=== PATIENT | male | born 1960 | race American Indian/Alaskan Native ===

== ENCOUNTER 2018-03-25 23:47 | Inpatient (IN) | payer MEDICARE ==
[2018-03-25 23:56] VITALS: BMI 24.6
[2018-03-26] MEDS ORDERED: Glucagon Recombinant 1 mg Inj IM PRN (00:54)
[2018-03-26] MEDS ORDERED: Dextrose 50% SYRINGE Inj (50 ml) IV PRN (00:54)
--- NOTE | 2018-03-26 01:09 | CP.PCM.HP ---
History of Present Illness - History of Present Illness History of Present Illness: CC: admitted for IV diuresis and for urinary retention History obtained from chart as patient is deaf and mute. HPI: This is a 57 y/o male with MHx significant for HTN, CKD, DM2, systolic CHF with EF of 12% w/pacemaker/AICD, cardiac arrhythmia, papillary bladder cancer, and BPH who is transferred to the TCU from [facility], it appears for further diuresis and for management of urinary retention (now with new Brizuela). It appears he was initially admitted to [facility], [place] with volume overload, worsening ascites, obstructive uropathy and ?UTI. He appears to have undergone IV diuresis at [facility], [place], as well as 2 paracenteses; he also completed a course of Cipro for possible UTI. Currently he has no concerns/complaints. PMD: Dr. Marshall, cardio: Dr. Felipe ROOT: Patient cannot participate because he is deaf and mute. PMHx: HTN, CKD, DM2, systolic CHF with EF of 12% w/pacemaker/AICD, cardiac arrhythmia, BPH, previous stroke in 2000 and 2016, deaf and mute PSHx: Pacemaker and defibrillator 2000, paracentesis 12/2017 Allergies: NKDA Family Hx: Unknown Social Hx: Lives alone, former heavy drinker 18 years ago, last drink was 2016, Hx of one withdrawal seizure in 2001, no tobacco and illicit drugs, Proxy: Micheal, son: [phone], Ana Laura, daughter: [phone] Present on Admission - Present on Admission Any Indicators Present on Admission: No Past Patient History - Infectious Disease Hx of Infectious Diseases: None - Past Medical History & Family History Past Medical History?: Yes - Past Social History Smoking Status: Never Smoked Chewing Tobacco Use: No - CARDIAC Hx Congestive Heart Failure: Yes Hx Hypercholesterolemia: Yes Hx Hypertension: Yes - PULMONARY Hx Respiratory Disorders: No - NEUROLOGICAL HX Cerebrovascular Accident: Yes - HEENT Hx HEENT Problems: Yes Hx Deafness: Yes - RENAL Hx Chronic Kidney Disease: Yes - ENDOCRINE/METABOLIC Hx Diabetes Mellitus Type 2: Yes - HEMATOLOGICAL/ONCOLOGICAL Hx Blood Disorders: No - INTEGUMENTARY Hx Dermatological Problems: No - MUSCULOSKELETAL/RHEUMATOLOGICAL Hx Musculoskeletal Disorders: No Hx Falls: Yes - GASTROINTESTINAL Hx Gastrointestinal Disorders: Yes Other/Comment: ascites - GENITOURINARY/GYNECOLOGICAL Hx Genitourinary Disorders: Yes (retentrion brizuela to sgd) - PSYCHIATRIC Hx Substance Use: No - SURGICAL HISTORY Hx Surgeries: Yes Other/Comment: AICD. Paracentesis - ANESTHESIA Hx Anesthesia: Yes Hx Anesthesia Reactions: No Hx Malignant Hyperthermia: No Meds Allergies/Adverse Reactions: Allergies Allergy/AdvReac Type Severity Reaction Status Date / Time No Known Allergies Allergy Verified 03/13/18 18:39 Physical Exam - Constitutional Appears: No Acute Distress - Head Exam Head Exam: ATRAUMATIC, NORMOCEPHALIC - Eye Exam Eye Exam: EOMI, PERRL - ENT Exam ENT Exam: Mucous Membranes Moist - Neck Exam Neck exam: Positive for: Full Rom - Respiratory Exam Respiratory Exam: Decreased Breath Sounds, Clear to Auscultation Bilateral - Cardiovascular Exam Cardiovascular Exam: REGULAR RHYTHM, +S1, +S2 - GI/Abdominal Exam GI & Abdominal Exam: Distended, Soft - Exam Additional comments: Brizuela in place - Extremities Exam Extremities exam: Positive for: normal inspection - Neurological Exam Neurological exam: Alert Additional comments: Patient unable to hear or speak, but can communicate with gestures. Does not indicate he is uncomfortable. - Skin Skin Exam: Dry, Warm Assessment & Plan (1) Congestive heart failure Assessment and Plan: Patient currently stable, will need continued diuresis. -Cont Lasix 40 IV BID -Spironolactone -Cont Coreg, Entresto -Cont K and Mg supplementation -Fluid restrict to 1 L daily -Consult Dr. Carroll as needed Status: Chronic (2) Ascites Assessment and Plan: Appears to be reaccumulating -Continue diuresis -May need repeat paracentesis -Consider GI consult if necessary-- however, patient is scheduled for outpatient follow up Status: Chronic (3) Cardiorenal syndrome Assessment and Plan: Cardiorenal syndrome and CKD -- appears stable for now -Diuresis as above -Repeat BMP Status: Chronic (4) Chronic renal insufficiency Status: Acute (5) Urinary retention Assessment and Plan: Stable for now with Brizuela in place -Cont Flomax -Urology outpatient follow up for retnetion and for mass Status: Chronic (6) DM2 (diabetes mellitus, type 2) Assessment and Plan: Stable -DM diet -cont PO hypoglycemics -SSI Status: Acute (7) DVT prophylaxis Assessment and Plan: SC heparin Status: Acute
[2018-03-26] MEDS: Albuterol-Ipratrop 3 mg / 0.5 (3 ml) UD INH PRN ×2 (01:13→23:57)
[2018-03-26] MEDS: guaiFENesin 100 mg/5 ml Syrup UD PO PRN ×2 (01:33→21:54)
[2018-03-26] MEDS: Insulin Lispro (humaLOG) 100 Units/ml Inj SC SCH ×4 (08:08→21:55)
[2018-03-26] MEDS: Simethicone 80 mg Chewtab PO SCH ×4 (08:59→21:52)
[2018-03-26] MEDS: POLYETHYLENE GLYCOL 3350 17 GM/Dose PACKET PO SCH (08:59)
[2018-03-26] MEDS: Potassium Chloride 20 mEq ER Tab PO SCH (08:59)
[2018-03-26] MEDS ORDERED: MAGNESIUM OXIDE 400 MG PO SCH (09:00)
[2018-03-26] MEDS ORDERED: VALSARTAN PO SCH (09:00)
[2018-03-26] MEDS: Magnesium Oxide 400 mg Tab UD PO SCH (09:00)
[2018-03-26] MEDS ORDERED: LINAGLIPTIN PO SCH (09:00)
[2018-03-26] MEDS ORDERED: SACUBITRIL PO SCH (09:00)
[2018-03-26] MEDS: Benzocaine/Menthol (Cepacol) Lozenge MT PRN ×2 (09:02→17:22)
[2018-03-27] MEDS: Insulin Lispro (humaLOG) 100 Units/ml Inj SC SCH ×4 (06:29→21:09)
[2018-03-27] MEDS: Simethicone 80 mg Chewtab PO SCH ×4 (08:45→21:09)
[2018-03-27] MEDS: Potassium Chloride 20 mEq ER Tab PO SCH (08:46)
[2018-03-27] MEDS: POLYETHYLENE GLYCOL 3350 17 GM/Dose PACKET PO SCH (08:46)
[2018-03-27] MEDS: Magnesium Oxide 400 mg Tab UD PO SCH (08:46)
--- NOTE | 2018-03-27 11:37 | CP.PCM.PN ---
Subjective - Date & Time of Evaluation Date of Evaluation: 03/27/18 Time of Evaluation: 11:30 - Subjective Subjective: Patient seen and examined . Son is present helping with communication since patient is deaf and mute. As per PT with episodes of orthostasis with PT and some dizziness .Complains of penile discomfort from Moreno catheter afrebrile Objective - Vital Signs/Intake and Output Vital Signs (last 24 hours): Temp Pulse Resp BP Pulse Ox 97.1 F L 95 H 18 110/67 100 03/27/18 08:38 03/27/18 08:38 03/27/18 08:38 03/27/18 08:46 03/27/18 08:38 Intake and Output: 03/27/18 03/27/18 06:59 18:59 Output Total 800 Balance -800 - Medications Medications: Current Medications Albuterol/Ipratropium (Duoneb 3 Mg/0.5 Mg (3 Ml) Ud) 3 ml INH RQ6 PRN PRN Reason: Shortness of Breath Last Admin: 03/26/18 23:57 Dose: 3 ml Benzocaine/Menthol (Cepacol Sore Throat) 1 dwight MT Q4H PRN PRN Reason: Sore Throat Last Admin: 03/26/18 17:22 Dose: 1 dwight Benzonatate (Tessalon Perles) 100 mg PO TID PRN PRN Reason: Cough Last Admin: 03/26/18 04:55 Dose: 100 mg Bisacodyl (Dulcolax) 10 mg ID Q12 PRN PRN Reason: Constipation Carvedilol (Coreg) 25 mg PO BID [facility] Last Admin: 03/27/18 08:45 Dose: 25 mg Dextrose (Dextrose 50% Inj) 0 ml IV STAT PRN; Protocol PRN Reason: Hypoglycemia Protocol Dextrose (Glutose 15) 0 gm PO ONCE PRN; Protocol PRN Reason: Hypoglycemia Protocol Furosemide (Lasix) 40 mg IVP BID [facility] Last Admin: 03/27/18 08:46 Dose: 40 mg Glucagon (Glucagen Diagnostic Kit) 0 mg IM STAT PRN; Protocol PRN Reason: Hypoglycemia Protocol Guaifenesin (Robitussin) 100 mg PO Q4H PRN PRN Reason: Cough Last Admin: 03/26/18 21:54 Dose: 100 mg Heparin Sodium (Porcine) (Heparin) 5,000 units SC Q8 VIRGILIO; Protocol Last Admin: 03/27/18 08:46 Dose: 5,000 units Home Med (Sacubitril/Valsartan [Entresto 49 Mg-51 Mg]) 2 tab PO BID [facility] Insulin Human Lispro (Humalog) 0 units SC ACHS [facility]; Protocol Last Admin: 03/27/18 11:20 Dose: Not Given Magnesium Oxide (Mag-Ox) 400 mg PO DAILY [facility] Last Admin: 03/27/18 08:46 Dose: 400 mg Polyethylene Glycol (Miralax) 17 gm PO DAILY [facility] Last Admin: 03/27/18 08:46 Dose: 17 gm Potassium Chloride (K-Dur 20 Meq Er Tab) 20 meq PO DAILY [facility] Last Admin: 03/27/18 08:46 Dose: 20 meq Simethicone (Mylicon Chew Tab) 80 mg PO QID [facility] Last Admin: 03/27/18 08:45 Dose: 80 mg Sitagliptin Phosphate (Januvia) 100 mg PO DAILY [facility] Last Admin: 03/27/18 08:46 Dose: 100 mg Spironolactone (Aldactone) 50 mg PO DAILY [facility] Last Admin: 03/27/18 08:45 Dose: 50 mg Tamsulosin HCl (Flomax) 0.4 mg PO BID [facility] Last Admin: 03/27/18 08:46 Dose: 0.4 mg Tramadol HCl (Ultram) 50 mg PO BID PRN PRN Reason: Pain, moderate (4-7) Last Admin: 03/27/18 10:47 Dose: 50 mg - Constitutional Appears: Non-toxic, No Acute Distress - Head Exam Head Exam: ATRAUMATIC, NORMOCEPHALIC - Eye Exam Eye Exam: EOMI, PERRL Pupil Exam: NORMAL ACCOMODATION - ENT Exam ENT Exam: Normal Exam - Neck Exam Neck Exam: Normal Inspection - Respiratory Exam Respiratory Exam: Clear to Ausculation Bilateral, NORMAL BREATHING PATTERN. absent: Rhonchi, Wheezes - Cardiovascular Exam Cardiovascular Exam: REGULAR RHYTHM, RRR, +S1, +S2. absent: JVD - GI/Abdominal Exam GI & Abdominal Exam: Soft, Normal Bowel Sounds. absent: Guarding, Rigid, Tenderness, Rebound - Rectal Exam Rectal Exam: Deferred - Extremities Exam Extremities Exam: Normal Inspection. absent: Pedal Edema - Back Exam Back Exam: NORMAL INSPECTION - Neurological Exam Neurological Exam: Alert, Awake - Psychiatric Exam Psychiatric exam: Normal Affect - Skin Skin Exam: Dry, Warm Assessment and Plan - Assessment and Plan (Free Text) Assessment: 57 y/o male with PMHx significant for HTN, CKD, DM2, systolic CHF with EF of 12% w/pacemaker/AICD, cardiac arrhythmia, papillary bladder cancer, and BPH transferred to TCU from [facility] for PT .It appears he was initially admitted to [facility] with volume overload, worsening ascites, obstructive uropathy and ?UTI. He appears to have undergone IV diuresis at [facility], as well as 2 paracenteses; he also completed a course of Cipro for possible UTI. Currently Moreno in place and has appointment with urologist March 30 complains of dizziness and penile discomfort and pain due to Moreno 1.Congestive heart failure EF 12 %, guarded prognosis has AICD in place Cont Lasix, spironolactpone, coreg, Entrestro Fluid restrict to 1 L daily 2. Ascites Continue diuresis 3. Cardiorenal syndrome Cardiorenal syndrome and CKD -- appears stable for now 4. Chronic renal insufficiency Stable 5. Urinary retention Moreno in place Start Bladder training On Flomax f/u with Urology outpatient for BPH and bladder mass 6. DM2 (diabetes mellitus, type 2) Stable DM diet, Accuchecks, insulin coverage 7. DVT prophylaxis heparin 8. Generalized weakness Minimal therapy for ADL-s Patient has low EF 12 % ACEI bandage to LE for orthpostasis prevention
[2018-03-27] MEDS ORDERED: Sodium Chloride 0.9% 250 ML IV SCH ×2 (15:15)
[2018-03-27] MEDS: Sodium Chloride 0.9% 250 ML IV SCH ×2 (21:12→23:56)
[2018-03-28] MEDS: Insulin Lispro (humaLOG) 100 Units/ml Inj SC SCH (06:39)
[2018-03-28] MEDS: Potassium Chloride 20 mEq ER Tab PO SCH (08:24)
[2018-03-28] MEDS: POLYETHYLENE GLYCOL 3350 17 GM/Dose PACKET PO SCH (08:24)
[2018-03-28] MEDS: Magnesium Oxide 400 mg Tab UD PO SCH (08:24)
[2018-03-28] MEDS: Simethicone 80 mg Chewtab PO SCH (08:24)
[2018-03-28 08:41] VITALS: BP 71/35; PULSE 74; RESP 18; TEMP 97.5; O2SAT 99
--- NOTE | 2018-03-28 10:41 | CP.PCM.CON ---
History of Present Illness - History of Present Illness History of Present Illness: This 57-year-old man was seen in the emergency room where he was sent from the transitional care unit when he was found to be profoundly hypotensive. The patient is deaf and mute and I have reviewed his medical records from his hospitalization at [facility] and at [facility] since November. The patient has profound cardiomyopathy with left ventricular ejection fraction in the range of 10% as well as an enlarged right ventricle and right atrium and left atrium. He has had atrial flutter and a moderate heart rate. He was hospitalized with urinary retention and now has a Brizuela catheter. The patient is on 40 mg of furosemide intravenously twice a day along with Aldactone, carvedilol twice a day and Flomax. Physical examination shows a thin built middle aged -[place] male who is not able to express himself but seems to be aware of his surroundings. He follows simple commands readily. 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 His blood pressure was 82/50 mmHg His extremities were warm and the skin was dry. there was minimal pitting edema on both ankles and his jugular venous pressure was mildly elevated. There was an indwelling Brizuela catheter in place the apex was vaguely felt in the sixth space with an extremely muffled first heart sound. There is a brief apical systolic murmur no gallop could be ascertained. There were very few rales at both bases. On oxygen supplement of 3 L/m his pulse oximetry was in the range of 97%. His recent cardiogram reveals atrial flutter with moderate heart rates and evidence off an old inferior wall myocardial infarction and possibly a lateral wall myocardial infarction. Recent echocardiogram was also reviewed. The patient was found to have a bladder tumor during a recent cystoscopy on March 16. His recent labs were noted. Impression: Profound congestive cardiomyopathy in a patient with possible bladder tumor and benign prostatitic hypertrophy and urinary retention. The patient is on multiple medications which would be responsible for his hypotension. The patient was taking Flomax along with carvedilol (with its out for sympathetic blocking effect) as well as aggressive diuresis using 40 mg of furosemide intravenously twice a day along with Aldactone. With profound left ventricular systolic dysfunction the patient is volume dependent for adequate cardiac output at the same time he needs aggressive diuresis to prevent pulmonary congestion. With a Brizuela catheter in place I have discontinued Flomax. I have reduced his dose of carvedilol and discontinued Aldactone. Even with a systolic blood pressure of 82 mmHg the patient displays adequate tissue perfusion in the form of warm extremities and mental clarity. The patient may return to transitional care unit, though given his profound congestive cardiac failure I do not expect him to participate in any rehabilitative exercises. 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 Past Patient History - Infectious Disease Hx of Infectious Diseases: None - Past Medical History & Family History Past Medical History?: Yes - Past Social History Smoking Status: Never Smoked Chewing Tobacco Use: No - CARDIAC Hx Congestive Heart Failure: Yes Hx Hypercholesterolemia: Yes Hx Hypertension: Yes - PULMONARY Hx Respiratory Disorders: No - NEUROLOGICAL HX Cerebrovascular Accident: Yes - HEENT Hx HEENT Problems: Yes Hx Deafness: Yes - RENAL Hx Chronic Kidney Disease: Yes - ENDOCRINE/METABOLIC Hx Diabetes Mellitus Type 2: Yes - HEMATOLOGICAL/ONCOLOGICAL Hx Blood Disorders: No - INTEGUMENTARY Hx Dermatological Problems: No - MUSCULOSKELETAL/RHEUMATOLOGICAL Hx Musculoskeletal Disorders: No Hx Falls: Yes - GASTROINTESTINAL Hx Gastrointestinal Disorders: Yes Other/Comment: ascites - GENITOURINARY/GYNECOLOGICAL Hx Genitourinary Disorders: Yes (retentrion brizuela to sgd) - PSYCHIATRIC Hx Substance Use: No - SURGICAL HISTORY Hx Surgeries: Yes Other/Comment: AICD. Paracentesis - ANESTHESIA Hx Anesthesia: Yes Hx Anesthesia Reactions: No Hx Malignant Hyperthermia: No Meds Allergies/Adverse Reactions: Allergies Allergy/AdvReac Type Severity Reaction Status Date / Time No Known Allergies Allergy Verified 03/13/18 18:39 Results - Vital Signs Recent Vital Signs: Last Vital Signs Temp 97.5 F L 03/28/18 08:40 Pulse 74 03/28/18 08:40 Resp 18 03/28/18 08:40 BP 71/35 L 03/28/18 08:40 Pulse Ox 99 03/28/18 08:40 - Labs Labs: Laboratory Results - last 24 hr 03/27/18 03/27/18 03/27/18 10:39 14:26 16:25 POC Glucose (mg/dL) 110 100 85 03/27/18 03/28/18 20:51 05:54 POC Glucose (mg/dL) 119 H 87
--- NOTE | 2018-03-28 17:08 | CP.PCM.DIS ---
Provider - Provider Date of Admission: 03/25/18 23:49 Attending physician: Eitan Islas MD Consults: 03/26/18 02:22 Social Work Referral Routine Comment: evaluate needs Physician Instructions: Reason For Exam: new admission 03/26/18 02:25 Pastoral Care Referral Routine Comment: Physician Instructions: Reason For Exam: advance directive information 03/26/18 03:01 Wound Care [Nursing Referral for Wound Care] Routine Comment: Physician Instructions: Reason For Exam: evaluate gluteal fold, r abdomen and legs 03/28/18 08:02 Cardiology Consult Routine Comment: Consulting Provider: Kris Mitchell V Consulting Physician: Kris Mitchell V Reason for Consult: cardiac for PT clearence Time Spent in preparation of Discharge (in minutes): 20 Hospital Course - Lab Results Lab Results: Most Recent Lab Values POC Glucose (mg/dL) 87 mg/dL (65-110) 03/28/18 05:54 - Hospital Course Hospital Course: 57 y/o male with PMHx significant for HTN, CKD, DM2, dilated cardiomyopathy ,systolic dysfuntion, EF of 12% w/pacemaker/AICD, cardiac arrhythmia, papillary bladder cancer, and BPH transferred to TCU from [facility] for PT .It appears he was initially admitted to [facility] [place] with volume overload, worsening ascites, obstructive uropathy and ?UTI. He had undergone IV diuresis at [facility] [place], as well as 2 paracenteses; he also completed a course of Cipro for possible UTI. Moreno Catheter in place .o.Patient has low BP baseline and he complained of dizziness . He was transferred to telemetry for close monitoring due to low BP Patient is deaf and mute 1.Severe dilated cardiomyopathy EF 12 % , systolic dysfunction EF 12 %, guarded prognosis has AICD in place Cont Lasix, coreg, Entrestro Fluid restrict to 1 L daily 2. 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 CKD 5. Urinary retention, bladder carcinoma and BPH Obstructive uropathy Keep Moreno in place f/u with Urology outpatient for BPH and bladder mass will d/c flomax since patient is hypotensive 6. DM2 (diabetes mellitus, type 2) Stable DM diet, Accuchecks, insulin coverage 8. Generalized weakness Guarded prognosis Discharge Exam - Head Exam Head Exam: ATRAUMATIC, NORMOCEPHALIC - Eye Exam Eye Exam: EOMI, PERRL - Neck Exam Neck exam: Normal Inspection - Respiratory Exam Respiratory Exam: Clear to PA & Lateral, Rales (bibasilar ). absent: Wheezes - Cardiovascular Exam Cardiovascular Exam: REGULAR RHYTHM. absent: JVD - GI/Abdominal Exam GI & Abdominal Exam: Distended, Normal Bowel Sounds, Soft. absent: Guarding, Rebound Additional comments: ascites - Rectal Exam Rectal Exam: Deferred - Extremities Exam Extremities exam: normal inspection, pedal pulses present - Psychiatric Exam Psychiatric exam: Normal Affect Additional comments: deaf and mute - Skin Skin Exam: Dry, Warm Discharge Plan - Follow Up Plan Condition: GUARDED Disposition: Trans to Other Acute Care Hosp
--- NOTE | 2018-03-28 19:27 | CARD ---
APPROVED REPORT Date of service: 03/28/2018 EKG Measurement Heart [id number] <Conclusion> Sinus tachycardia with 1st degree AV block with premature ventricular complexes Left axis deviation Incomplete right bundle branch block Inferior infarct, age undetermined Abnormal ECG
== END 2018-03-28 09:15 | disposition short-term general hospital (02) | DRG 292 ==
LOC: H.TCU 23:49
PROVIDERS: ADMIT Internal Medicine; ATTEND Internal Medicine
PROC: F07Z9FZ Gait Training/Functional Ambulation Treatment using Assistive, Adaptive, Supportive or Protective Equipment (ICD-10-PCS; principal; 2018-03-25)
PROC: F08Z4FZ Home Management Treatment using Assistive, Adaptive, Supportive or Protective Equipment (ICD-10-PCS; 2018-03-25)
PROC: F07M6FZ Therapeutic Exercise Treatment of Musculoskeletal System - Whole Body using Assistive, Adaptive, Supportive or Protective Equipment (ICD-10-PCS; 2018-03-26)
DX: I13.0 Hypertensive heart and chronic kidney disease with heart failure and stage 1 through stage 4 chronic kidney disease, or unspecified chronic kidney disease (principal); I50.22 Chronic systolic (congestive) heart failure; N13.8 Other obstructive and reflux uropathy; I95.9 Hypotension, unspecified; K70.31 Alcoholic cirrhosis of liver with ascites; I42.0 Dilated cardiomyopathy; N18.9 Chronic kidney disease, unspecified; E11.22 Type 2 diabetes mellitus with diabetic chronic kidney disease; F10.10 Alcohol abuse, uncomplicated; C67.9 Malignant neoplasm of bladder, unspecified; H91.3 Deaf nonspeaking, not elsewhere classified; N40.1 Benign prostatic hyperplasia with lower urinary tract symptoms; R33.8 Other retention of urine; E78.00 Pure hypercholesterolemia, unspecified; Z86.73 Personal history of transient ischemic attack (TIA), and cerebral infarction without residual deficits; Z95.810 Presence of automatic (implantable) cardiac defibrillator

== ENCOUNTER 2018-03-28 09:15 | Inpatient (IN) | payer MEDICARE ==
--- NOTE | 2018-03-28 09:28 | ED PDOC ---
HPI: General Adult Time Seen by Provider: 03/28/18 09:19 Chief Complaint (Provider): Hypotension History Per: Patient, Other (Dr. Oliveros) Onset/Duration Of Symptoms: Days (today) Additional Complaint(s): Pt. sent from TCU by Dr. Oliveros. States pt. bp is consistently low and TCU called TRANSPORTATION DISPATCHER. Pt. bp at 70s systolic and at near his baseline. She already gave fluids and does not want any more to be given. Pt. was a transfer from [facility] to U. (He was intubated, had hepatorenal syndrome, and low ef there). Extubated and sent to TCU. Past Medical History Reviewed: Nursing Documentation, Vital Signs - Medical History PMH: Cardia Arrhythmia, CHF, HTN, Hypercholesterolemia, Hyperlipidemia, Peripheral Edema, Chronic Kidney Disease Denies: Personality Disorder Other PMH: mute and deaf - Surgical History Surgical History: Pacemaker - Family History Family History: States: Unknown Family Hx - Immunization History Hx Tetanus Toxoid Vaccination: No Hx Influenza Vaccination: No Hx Pneumococcal Vaccination: No - Home Medications Home Medications: Ambulatory Orders Medication Instructions Recorded Albuterol HFA [Ventolin HFA 90 1 puff IH PRN PRN 01/09/18 mcg/actuation (8 g)] Atenolol [Tenormin] 1 tab PO DAILY 01/09/18 Linagliptin [Tradjenta] 1 tab PO DAILY 01/09/18 Magnesium Oxide [Mag-Oxide] 400 mg PO DAILY 01/09/18 Potassium Chloride [K-Dur 20 mEq 1 tab PO DAILY 01/09/18 ER Tab] Tramadol HCl [Ultram] 1 tab PO BID PRN 01/09/18 Albuterol/Ipratropium [Duoneb 3 3 ml INH RQ6 PRN neb 03/25/18 mg/0.5 mg (3 ml) UD] Benzocaine/Menthol [Cepacol Sore 1 dwight MT Q4H PRN dwight 03/25/18 Throat] Benzonatate [Tessalon Perles] 100 mg PO TID PRN sgl 03/25/18 Bisacodyl [Dulcolax] 10 mg CA Q12 PRN sup 03/25/18 Carvedilol [Coreg] 25 mg PO BID tab 03/25/18 Furosemide [Lasix] 40 mg IVP DAILY vial 03/25/18 Heparin 5,000 units SC Q8 vial 03/25/18 Polyethylene Glycol 3350 [Miralax] 17 gm PO DAILY packet 03/25/18 Promethazine [Phenergan Syrup] 12.5 mg PO Q6 PRN dose 03/25/18 Sacubitril/Valsartan [Entresto 49 2 tab PO BID tablet 03/25/18 mg-51 mg] Simethicone [Mylicon Chew Tab] 80 mg PO QID chew 03/25/18 Spironolactone [Aldactone] 50 mg PO DAILY tab 03/25/18 Tamsulosin [Flomax] 0.4 mg PO BID cap 03/25/18 guaiFENesin [Robitussin] 100 mg PO Q4H PRN udc 03/25/18 - Allergies Allergies/Adverse Reactions: Allergies Allergy/AdvReac Type Severity Reaction Status Date / Time No Known Allergies Allergy Verified 03/13/18 18:39 Review of Systems ROS Statement: Except As Marked, All Systems Reviewed And Found Negative Physical Exam - Reviewed Nursing Documentation Reviewed: Yes Vital Signs Reviewed: Yes - Physical Exam Appears: Positive for: Non-toxic, No Acute Distress Head Exam: Positive for: ATRAUMATIC, NORMAL INSPECTION, NORMOCEPHALIC Skin: Positive for: Normal Color, Warm, DRY Eye Exam: Positive for: EOMI, Normal appearance, PERRL ENT: Positive for: Normal ENT Inspection Neck: Positive for: Normal, Painless ROM Cardiovascular/Chest: Positive for: Regular Rate, Rhythm Respiratory: Positive for: CNT, Normal Breath Sounds Gastrointestinal/Abdominal: Positive for: Normal Exam, Soft. Negative for: Tenderness Back: Positive for: Normal Inspection. Negative for: L CVA Tenderness, R CVA Tenderness Extremity: Positive for: Normal ROM Neurologic/Psych: Positive for: Alert, Oriented - ECG ECG Rhythm: Positive for: Atrial Flutter, Nonspecific Changes Interpretation Of Abn EKG: same as 01/11/18 - Progress ED Course And Treament: 934: Dr. Oliveros does not want any more fluids. BP coming up. Now 85 systolic. Pt. with no pain, dyspnea. Is end stage cardiac pt. Dr. Oliveros to admit. Disposition - Clinical Impression Clinical Impression: Cardiorenal syndrome, Congestive heart failure, Hypotension - Patient ED Disposition Is Patient to be Admitted: Yes Counseled Patient/Family Regarding: Studies Performed, Diagnosis - Disposition Disposition Time: 09:35 Condition: FAIR - Pt Status Changed To: Hospital Disposition Of: Inpatient - Admit Certification Admit to Inpatient:: After my assessment, the patient will require hospitalization for at least two midnights. This is because of the severity of symptoms shown, intensity of services needed, and/or the medical risk in this patient being treated as an outpatient. - POA Present On Arrival: None
[2018-03-28 10:17] LABS: BASO # 0.1 K/uL (0.0-0.2); BASO % 1.6 % (0.0-2.0); EOS # 0.1 K/uL (0.0-0.7); EOS % 2.3 % (0.0-4.0); HEMOGLOBIN 14.9 g/dL (12.0-18.0); LYMPH # 1.2 K/uL (1.0-4.3); LYMPH % 20.8 % (20.0-40.0); MEAN CELL VOLUME 93.4 fl (80.0-94.0); MEAN CORPUSCULAR HEMOGLOBIN 29.6 pg (27.0-31.0); MEAN CORPUSCULAR HGB CONC 31.7 g/dL (33.0-37.0); MEAN PLATELET VOLUME 8.5 fl (7.2-11.7); MONO # 0.6 K/uL (0.0-0.8); MONO % 10.7 % (0.0-10.0); NEUT # 3.8 K/uL (1.8-7.0); NEUT % 64.6 % (50.0-75.0); NRBC % 0.1 % (0.0-0.0); RBC 5.03 Mil/uL (4.40-5.90); RED CELL DISTRIBUTION WIDTH 21.8 % (11.5-14.5); WHITE BLOOD COUNT 5.8 K/uL (4.8-10.8)
[2018-03-28 10:21] LABS: INR 1.4; PROTHROMBIN TIME 15.6 Seconds (9.8-13.1)
[2018-03-28 10:24] LABS: PARTIAL THROMBOPLASTIN TIME 32.3 Seconds (25.6-37.1)
[2018-03-28 11:19] LABS: ALB/GLOB RATIO 0.9 (1.0-2.1); ALBUMIN 3.4 g/dL (3.5-5.0); CALCIUM 9.5 mg/dL (8.4-10.2)
[2018-03-28 11:20] LABS: TROPONIN I 0.06 ng/mL (0.00-0.120)
[2018-03-28] MEDS ORDERED: Dextrose 50% SYRINGE Inj (50 ml) IVP STA ×2 (11:37→16:12)
[2018-03-28] MEDS ORDERED: Albuterol 0.083% Inhal Sol (2.5 mg/3 mL) UD INH STA (11:37)
[2018-03-28] MEDS ORDERED: Sod Polystyrene Sulf 15 gm/60 ml Susp PO STA (11:37)
[2018-03-28] MEDS ORDERED: Insulin Regular 100 units/ml IV STA (11:38)
[2018-03-28] MEDS ORDERED: Dextrose 50% SYRINGE Inj (50 ml) ONE ×2 (11:48→15:58)
[2018-03-28] MEDS ORDERED: Albuterol 0.083% Inhal Sol (2.5 mg/3 mL) UD ONE (11:48)
[2018-03-28] MEDS ORDERED: Insulin Regular 100 units/ml ONE (11:48)
[2018-03-28] MEDS ORDERED: SODIUM POLYSTYRENE SULFONATE 15 GM POWDER PO ONE (11:49)
--- NOTE | 2018-03-28 12:48 | PCM.RRT ---
FELLER SEAM OPERATOR Nurse Assessment - Ventilator Settings Ventilator Respiratory Rate Settin Ventilator Tidal Volume Settin I.Reason for FELLER SEAM OPERATOR - A) Acute Change in Patient: Subjective: This is a 57 yo male with PMh of HTN, CKD, DM2, systolic CHF with EF of 12% w/pacemaker/AICD, cardiac arrhythmia, papillary bladder cancer, and BPH who is in TCU for Physical therapy. FELLER SEAM OPERATOR was called due patient feeling dizzy, and Hypotension. upon arrival, Ox saturation of 88%, blood pressure was 70/50, hr 130. Patient received oxygen but ox saturation was not improving. Pt was sent to ER to be admitted to hospital. Plan - Assessment of Findings&Treatment Plan This is a 57 yo male with PMh of HTN, CKD, DM2, systolic CHF with EF of 12% w/pacemaker/AICD, cardiac arrhythmia, papillary bladder cancer, and BPH who is in TCU for Physical therapy Plan Sent to ER to be admitted to hospital
--- NOTE | 2018-03-28 12:48 | CP.PCM.HP ---
History of Present Illness - History of Present Illness History of Present Illness: Pt is a 57 yo male deaf and mute, with PMH of HTN, HLD, BPH, CKD 3, systolic heart failure with EJ of 12%, with AICD and pacemaker, cardiac arrhythmia, who was sent to ER from TCU after having an PASSENGER REPRESENTATIVE due to SOB and hypotension. Pt Was in TCU after was discharged and referred from [facility]. Pt was in [facility] for 1 week, as they were trying to get a bladder surgery but after they found patient EJ of 12% patient was not a candidate for surgery at that time and sent him to TCU for physical therapy. Spoke with son for further history. Son state patient had a ``stroke``(most likely CA) in 2000 which made him have a CHF in residential. Pt was seen by Cardiology due to cardiac arrythmia and was placed on pacemaker. Pt also had liver failure with ascites due to chronic abuse of alcohol and combined with CHF. In 2016 patient was having diffculty passing urine, and went to Urologist, had a work up and found to have BPH and Bladder cancer. He was recommended to go to hospital for surgery. Patient was not found to be a candidate for surgery due to weak heart, and needed to go to TCU and then follow up with Cardiology, GI in 1 week after TCU discharge. Upon discharge from [facility] they told him not to drink more than 1 L a day in fluid. Pt state [place] feel dizzy, nauseas, and have SOB, but denies headache, chest pain, abd pain, diarrhea constipation. PMHx: HTN, CKD, DM, systolic CHF with EF of 12%, pacemaker, AICD, cardiac arrhythmia, BPH, Previouse CA?Stroke? in 2000 and 2016 PSHx: Pacemaker and defibrillator 2000, paracentesis 12/2017 Meds: Carvedilol 25mg PO BID, Lasix 80mg PO BID, Entresto 97-103 BID, Sp ironolactone 50mg daily, Flomax 0.4mg bid, Tramadol 50mg po daily Allergies: NKDA FamHx: Unknown SocHx: Former heavy drinker, last drink 1 year ago, no smoke or drug use. Proxy: Micheal, son: [phone], Ana Laura, daughter: [phone] PMD: Dr. Marshall cardio: Dr. Wang Full Code In ED patient pt recieved Albuterol, Insulin His K was 6.4 and received Kayexelate Fluid was stopped after BP systolic 85 Patient was admitted to telemetry for further management Present on Admission - Present on Admission Any Indicators Present on Admission: Yes History of Uncontrolled Diabetes: Yes Urinary Catheter: Yes Review of Systems - Review of Systems All systems: reviewed and no additional remarkable complaints except Past Patient History - Infectious Disease Hx of Infectious Diseases: None - Past Medical History & Family History Past Medical History?: Yes - Past Social History Smoking Status: Never Smoked - CARDIAC Hx Cardia Arrhythmia: Yes Hx Congestive Heart Failure: Yes Hx Hypercholesterolemia: Yes Hx Hypertension: Yes Hx Pacemaker: Yes Hx Peripheral Edema: Yes - PULMONARY Hx Respiratory Disorders: No - NEUROLOGICAL HX Cerebrovascular Accident: Yes - HEENT Hx HEENT Problems: Yes Hx Deafness: Yes - RENAL Hx Chronic Kidney Disease: Yes - ENDOCRINE/METABOLIC Hx Diabetes Mellitus Type 2: Yes - HEMATOLOGICAL/ONCOLOGICAL Hx Blood Disorders: No - INTEGUMENTARY Hx Dermatological Problems: No - MUSCULOSKELETAL/RHEUMATOLOGICAL Hx Musculoskeletal Disorders: No Hx Falls: Yes - GASTROINTESTINAL Hx Gastrointestinal Disorders: Yes Other/Comment: ascites - GENITOURINARY/GYNECOLOGICAL Hx Genitourinary Disorders: Yes (retentrion brizuela to sgd) - PSYCHIATRIC Hx Substance Use: No - SURGICAL HISTORY Hx Surgeries: Yes Other/Comment: AICD. Paracentesis - ANESTHESIA Hx Anesthesia: Yes Hx Anesthesia Reactions: No Hx Malignant Hyperthermia: No Meds Allergies/Adverse Reactions: Allergies Allergy/AdvReac Type Severity Reaction Status Date / Time No Known Allergies Allergy Verified 03/13/18 18:39 Physical Exam - Constitutional Appears: Well, Non-toxic, No Acute Distress - Head Exam Head Exam: ATRAUMATIC, NORMAL INSPECTION, NORMOCEPHALIC - Eye Exam Eye Exam: EOMI, Scleral icterus. absent: Periorbital swelling Pupil Exam: NORMAL ACCOMODATION, PERRL - ENT Exam ENT Exam: Mucous Membranes Moist, Normal Exam - Respiratory Exam Respiratory Exam: Clear to Auscultation Bilateral, NORMAL BREATHING PATTERN - Cardiovascular Exam Cardiovascular Exam: REGULAR RHYTHM, +S1, +S2 - GI/Abdominal Exam GI & Abdominal Exam: Distended, Normal Bowel Sounds Additional comments: distended - Extremities Exam Extremities exam: Positive for: pedal pulses present. Negative for: calf tenderness, pedal edema, tenderness - Back Exam Back exam: NORMAL INSPECTION - Neurological Exam Neurological exam: Alert, CN II-XII Intact, Oriented x3 - Psychiatric Exam Psychiatric exam: Normal Affect, Normal Mood - Skin Skin Exam: Dry, Intact, Normal Color, Warm Results - Vital Signs Recent Vital Signs: Last Vital Signs Temp 96.6 F L 03/28/18 09:48 Pulse 102 H 03/28/18 11:58 Resp 29 H 03/28/18 11:01 BP 92/57 L 03/28/18 11:01 Pulse Ox 97 03/28/18 11:01 - Labs Result Diagrams: 03/28/18 09:50 03/28/18 10:45 Labs: Laboratory Results - last 24 hr 03/28/18 03/28/18 03/28/18 09:36 09:50 09:50 WBC 5.8 RBC 5.03 Hgb 14.9 Hct 47.0 MCV 93.4 MCH 29.6 MCHC 31.7 L RDW 21.8 H Plt Count 188 MPV 8.5 Neut % (Auto) 64.6 Lymph % (Auto) 20.8 Chase % (Auto) 10.7 H Eos % (Auto) 2.3 Baso % (Auto) 1.6 Neut # (Auto) 3.8 Lymph # (Auto) 1.2 Chase # (Auto) 0.6 Eos # (Auto) 0.1 Baso # (Auto) 0.1 PT INR APTT Sodium Cancelled Potassium Cancelled Chloride Cancelled Carbon Dioxide Cancelled Anion Gap Cancelled BUN Cancelled Creatinine Cancelled Est GFR ( Amer) Cancelled Est GFR (Non-Af Amer) Cancelled POC Glucose (mg/dL) 109 Random Glucose Cancelled Calcium Cancelled Total Bilirubin Cancelled AST Cancelled ALT Cancelled Alkaline Phosphatase Cancelled Troponin I Cancelled NT-Pro-B Natriuret Pep Cancelled Total Protein Cancelled Albumin Cancelled Globulin Cancelled Albumin/Globulin Ratio Cancelled 03/28/18 03/28/18 09:50 10:45 WBC RBC Hgb Hct MCV MCH MCHC RDW Plt Count MPV Neut % (Auto) Lymph % (Auto) Chase % (Auto) Eos % (Auto) Baso % (Auto) Neut # (Auto) Lymph # (Auto) Chase # (Auto) Eos # (Auto) Baso # (Auto) PT 15.6 H INR 1.4 APTT 32.3 Sodium 139 Potassium 6.4 H* Chloride 101 Carbon Dioxide 28 Anion Gap 16 BUN 58 H Creatinine 2.5 H Est GFR ( Amer) 32 Est GFR (Non-Af Amer) 27 POC Glucose (mg/dL) Random Glucose 106 Calcium 9.5 Total Bilirubin 4.1 H AST 26 ALT 29 Alkaline Phosphatase 463 H Troponin I 0.0600 NT-Pro-B Natriuret Pep 5990 H Total Protein 7.3 Albumin 3.4 L Globulin 3.9 Albumin/Globulin Ratio 0.9 L Assessment & Plan - Assessment and Plan (Free Text) Assessment: Pt is a 57 yo male deaf and mute, with PMH of HTN, HLD, BPH, CKD 3, systolic heart failure with EJ of 12%, with AICD and pacemaker, cardiac arrhythmia, who was sent to ER from TCU after having an PASSENGER REPRESENTATIVE due to SOB and hypotension. Pt admitted to telemetry for further management CHF EJ fraction of 12% As per cardiology consult Start Lasix 40 IV BID Start 12.5 Coreg Stop flomax Stop Spironolactone Restrict fluid 1L daily Insert Brizuela Ascitis Distended abdomen Chronic hx of alcohol abuse Continue Lasix Acute on Chronic renal insufficiency Cr from 1.5-2.5 Pt is on fluid restriction due to CHF Will follow up with exacerbation F/U BMP Hyperkalemia Potassium 6.4 Patient recieved albuterol, insulin in the ER which may have increased K level S/P kayexalate F/U BMP Urinary retention BPH with Bladder cancer Insert Brizuela catheter Stop Flomax DM2 Chronic Insulin Sliding scale Hypoglycemic protocol DVT prophylaxis SC heparin
[2018-03-28] MEDS ORDERED: Albuterol-Ipratrop 3 mg / 0.5 (3 ml) UD INH PRN (14:21)
[2018-03-28] MEDS ORDERED: Calcium Gluconate 4.65 mEq/10 ml Inj IV ONE (14:38)
[2018-03-28] MEDS ORDERED: Calcium Gluconate 4.6 MEQ in Sodium Chloride 0.9% 100 ML IV ONE (15:15)
[2018-03-28] MEDS: Simethicone 80 mg Chewtab PO SCH ×2 (16:56→22:38)
[2018-03-28] MEDS ORDERED: SACUBITRIL PO SCH (17:00)
[2018-03-28] MEDS ORDERED: VALSARTAN PO SCH (17:00)
[2018-03-28 18:42] VITALS: BMI 24.5
--- NOTE | 2018-03-28 20:07 | CP.PCM.PCO ---
Assessment/Plan - Assessment and Plan (Free Text) Assessment: Cardiology, Dr. Mitchell's recommendations were reviewed. Entresto was stopped at this time, will restart when pts systolic BP is above 100.
[2018-03-29 07:34] LABS: CALCIUM 9.7 mg/dL (8.4-10.2)
[2018-03-29 08:17] LABS: HEMOGLOBIN 15.1 g/dL (12.0-18.0); MEAN CORPUSCULAR HEMOGLOBIN 29.9 pg (27.0-31.0); MEAN CORPUSCULAR HGB CONC 32.5 g/dL (33.0-37.0); RBC 5.05 Mil/uL (4.40-5.90); RED CELL DISTRIBUTION WIDTH 21.7 % (11.5-14.5)
[2018-03-29] MEDS: Magnesium Oxide 400 mg Tab UD PO SCH (09:12)
[2018-03-29] MEDS: Simethicone 80 mg Chewtab PO SCH ×4 (09:12→21:44)
[2018-03-29] MEDS: POLYETHYLENE GLYCOL 3350 17 GM/Dose PACKET PO SCH (09:12)
--- NOTE | 2018-03-29 09:33 | CP.PCM.PN ---
Subjective - Date & Time of Evaluation Date of Evaluation: 03/29/18 Time of Evaluation: 09:15 - Subjective Subjective: The patient breathes comfortably while propped up in bed. Telemetry shows atrial flutter with a heart rate of 115 while on carvedilol 3.125 mg twice a day His blood pressure was 96/70 mmHg. Jugular venous pressure was mildly elevated. There was loud gallop rhythm. The patient has significant amount of ascites. There were few basal rales audible. His labs were noted. I have increased his dose of carvedilol to 6.25 mg twice a day I have instructed the nurse to sit the patient up in a chair as tolerated. Objective - Vital Signs/Intake and Output Vital Signs (last 24 hours): Temp Pulse Resp BP Pulse Ox 98.1 F 59 L 18 97/67 L 96 03/29/18 08:13 03/29/18 09:11 03/29/18 08:13 03/29/18 09:12 03/29/18 08:13 Intake and Output: 03/29/18 03/29/18 06:59 18:59 Intake Total 240 Output Total 160 Balance 80 - Medications Medications: Current Medications Albuterol/Ipratropium (Duoneb 3 Mg/0.5 Mg (3 Ml) Ud) 3 ml INH RQ6 PRN PRN Reason: Shortness of Breath Bisacodyl (Dulcolax) 10 mg MN Q12 PRN PRN Reason: Constipation Carvedilol (Coreg) 6.25 mg PO Q12 [facility] Furosemide (Lasix) 40 mg IVP Q12 [facility] Last Admin: 03/29/18 09:12 Dose: Not Given Heparin Sodium (Porcine) (Heparin) 5,000 units SC Q8 [facility]; Protocol Last Admin: 03/29/18 09:11 Dose: 5,000 units Ibuprofen (Motrin Tab) 400 mg PO Q6 PRN PRN Reason: Pain, Mild (1-3) Magnesium Oxide (Mag-Ox) 400 mg PO DAILY [facility] Last Admin: 03/29/18 09:12 Dose: 400 mg Polyethylene Glycol (Miralax) 17 gm PO DAILY [facility] Last Admin: 03/29/18 09:12 Dose: 17 gm Simethicone (Mylicon Chew Tab) 80 mg PO QID [facility] Last Admin: 03/29/18 09:12 Dose: 80 mg Sitagliptin Phosphate (Januvia) 100 mg PO DAILY [facility] Last Admin: 03/29/18 09:12 Dose: 100 mg Spironolactone (Aldactone) 12.5 mg PO DAILY [facility] Tramadol HCl (Ultram) 50 mg PO BID PRN PRN Reason: Pain, moderate (4-7) - Labs Labs: 03/29/18 06:00 03/29/18 06:00 PT 15.6 Seconds (9.8-13.1) H 03/28/18 09:50 INR 1.4 03/28/18 09:50 APTT 32.3 Seconds (25.6-37.1) 03/28/18 09:50
--- NOTE | 2018-03-29 11:51 | CP.PCM.PN ---
<Edmund Worthington - Last Filed: 03/29/18 13:43> Subjective - Date & Time of Evaluation Date of Evaluation: 03/29/18 Time of Evaluation: 08:00 - Subjective Subjective: Pt seen and examined at bedside Pt reports difficulty eating due to abdominal pain/distension. Pt also reports mild improvement with breathing when seated up right. Denies significant overnight events. Patient requests brizuela to be removed and for discharge soon. adult protective caseworker: Jason Kam Objective - Vital Signs/Intake and Output Vital Signs (last 24 hours): Temp Pulse Resp BP Pulse Ox 98.1 F 59 L 18 97/67 L 96 03/29/18 08:13 03/29/18 09:11 03/29/18 08:13 03/29/18 09:12 03/29/18 08:13 Intake and Output: 03/29/18 03/29/18 06:59 18:59 Intake Total 240 Output Total 160 Balance 80 - Medications Medications: Current Medications Albuterol/Ipratropium (Duoneb 3 Mg/0.5 Mg (3 Ml) Ud) 3 ml INH RQ6 PRN PRN Reason: Shortness of Breath Bisacodyl (Dulcolax) 10 mg OR Q12 PRN PRN Reason: Constipation Carvedilol (Coreg) 6.25 mg PO Q12 [facility] Furosemide (Lasix) 40 mg IVP Q12 [facility] Last Admin: 03/29/18 09:12 Dose: Not Given Heparin Sodium (Porcine) (Heparin) 5,000 units SC Q8 [facility]; Protocol Last Admin: 03/29/18 09:11 Dose: 5,000 units Ibuprofen (Motrin Tab) 400 mg PO Q6 PRN PRN Reason: Pain, Mild (1-3) Magnesium Oxide (Mag-Ox) 400 mg PO DAILY [facility] Last Admin: 03/29/18 09:12 Dose: 400 mg Polyethylene Glycol (Miralax) 17 gm PO DAILY [facility] Last Admin: 03/29/18 09:12 Dose: 17 gm Simethicone (Mylicon Chew Tab) 80 mg PO QID [facility] Last Admin: 03/29/18 09:12 Dose: 80 mg Sitagliptin Phosphate (Januvia) 100 mg PO DAILY [facility] Last Admin: 03/29/18 09:12 Dose: 100 mg Spironolactone (Aldactone) 12.5 mg PO DAILY [facility] Tramadol HCl (Ultram) 50 mg PO BID PRN PRN Reason: Pain, moderate (4-7) - Labs Labs: 03/29/18 06:00 03/29/18 06:00 PT 15.6 Seconds (9.8-13.1) H 03/28/18 09:50 INR 1.4 03/28/18 09:50 APTT 32.3 Seconds (25.6-37.1) 03/28/18 09:50 - Constitutional Appears: Well - Eye Exam Eye Exam: EOMI - ENT Exam ENT Exam: Mucous Membranes Moist - Neck Exam Neck Exam: Full ROM Additional comments: mild JVD - Respiratory Exam Respiratory Exam: Rales (bilateral basilar), NORMAL BREATHING PATTERN. absent: Accessory Muscle Use, Wheezes - Cardiovascular Exam Cardiovascular Exam: Tachycardia, Gallop, REGULAR RHYTHM, +S1, +S2 - GI/Abdominal Exam GI & Abdominal Exam: Distended, Firm, Normal Bowel Sounds. absent: Tenderness - Extremities Exam Extremities Exam: Pedal Edema. absent: Calf Tenderness - Neurological Exam Neurological Exam: Alert, Awake, Oriented x3 - Psychiatric Exam Psychiatric exam: Normal Affect, Normal Mood - Skin Skin Exam: Dry Assessment and Plan - Assessment and Plan (Free Text) Plan: 57 yo M with pmhx of dilated cardiomyopathy (EF 12%) s/p AICD, cardiac arrhythmias, CKD, liver cirrhosis, ascites, bladder cancer, BPH, deaf and mute was admitted due to symptomatic hypotension secondary to extensive cardiac comorbidities. CHF -EF of 12% -Cardiology: Coreg increased to 6.25 mg BID -Lasix 40 IV BID -d/c: flomax, Spironolactone -Fluid restriction: 1 L daily -Brizuela to be dc; monitor for fluid retention -Heart healthy diet Ascitis -Abdominal distension -Pt noted to be increase work of breathing at rest -to be seated upright -GI: Dr. Stewart consulted -h/o chronic alcohol abuse -Lasix 40 IV BID -f/u CXR Acute on Chronic renal insufficiency -Cr: 1.5>2.5>2.6 -Fluid restriction: 1 L daily 2/2 CHF -f/u BMP Hyperkalemia -K: 6.4 > 5.9 -s/p kayexalate 30 gm yesterday; 15gm today -f/u BMP Urinary retention -BPH with Bladder cancer -Brizuela catheter discontinued. pt reports normal urinary function prior to hospital admission. -dc Flomax DM2 -Chronic -Accuchecks -ISS protocol -Hypoglycemia protocol DVT prophylaxis SC heparin PT -eval and treat -strengthening <Rose Hernandez Vamshi - Last Filed: 03/30/18 09:24> Objective - Vital Signs/Intake and Output Vital Signs (last 24 hours): Temp Pulse Resp BP Pulse Ox 97.2 F L 99 H 18 97/64 L 100 03/30/18 08:09 03/30/18 09:10 03/30/18 08:09 03/30/18 09:11 03/30/18 08:09 Intake and Output: 03/30/18 03/30/18 06:59 18:59 Intake Total 180 Output Total 300 Balance -120 - Medications Medications: Current Medications Albuterol/Ipratropium (Duoneb 3 Mg/0.5 Mg (3 Ml) Ud) 3 ml INH RQ6 PRN PRN Reason: Shortness of Breath Bisacodyl (Dulcolax) 10 mg [place] Q12 PRN PRN Reason: Constipation Carvedilol (Coreg) 6.25 mg PO Q12 [facility] Last Admin: 03/30/18 09:10 Dose: 6.25 mg Furosemide (Lasix) 40 mg IVP Q12 [facility] Last Admin: 03/30/18 09:11 Dose: Not Given Heparin Sodium (Porcine) (Heparin) 5,000 units SC Q8 [facility]; Protocol Last Admin: 03/30/18 09:10 Dose: 5,000 units Ibuprofen (Motrin Tab) 400 mg PO Q6 PRN PRN Reason: Pain, Mild (1-3) Magnesium Oxide (Mag-Ox) 400 mg PO DAILY [facility] Last Admin: 03/30/18 09:09 Dose: 400 mg Polyethylene Glycol (Miralax) 17 gm PO DAILY [facility] Last Admin: 03/30/18 09:11 Dose: 17 gm Simethicone (Mylicon Chew Tab) 80 mg PO QID [facility] Last Admin: 03/30/18 09:10 Dose: 80 mg Sitagliptin Phosphate (Januvia) 100 mg PO DAILY [facility] Last Admin: 03/30/18 09:10 Dose: 100 mg Spironolactone (Aldactone) 12.5 mg PO DAILY [facility] Tramadol HCl (Ultram) 50 mg PO BID PRN PRN Reason: Pain, moderate (4-7) - Labs Labs: 03/30/18 06:00 03/30/18 06:00 PT 15.6 Seconds (9.8-13.1) H 03/28/18 09:50 INR 1.4 03/28/18 09:50 APTT 32.3 Seconds (25.6-37.1) 03/28/18 09:50 Attending/Attestation - Attestation I have personally seen and examined this patient.: Yes I have fully participated in the care of the patient.: Yes I have reviewed all pertinent clinical information, including history, physical exam and plan: Yes Notes (Text): 03/30/18 09:23 Seen examined and discussed with resident. Agree with findings and plan as above. Patient chronically ill. Seen with weight recorder, appears to be more dyspneic than compared to baseline, becomes dizzy and dyspneic with PT. Abd also more distended than compared to his baseline, per patient. GI consult appreciated with Dr. Stewart, will obtain Hep panel, Abd US, and likely paracentesis
[2018-03-29] MEDS ORDERED: Sod Polystyrene Sulf 15 gm/60 ml Susp PO ONE (14:00)
[2018-03-30 06:44] LABS: HEMOGLOBIN 14.3 g/dL (12.0-18.0); MEAN CELL VOLUME 90.9 fl (80.0-94.0); MEAN CORPUSCULAR HEMOGLOBIN 29.8 pg (27.0-31.0); MEAN CORPUSCULAR HGB CONC 32.8 g/dL (33.0-37.0); RBC 4.81 Mil/uL (4.40-5.90); RED CELL DISTRIBUTION WIDTH 21.1 % (11.5-14.5); WHITE BLOOD COUNT 6.2 K/uL (4.8-10.8)
[2018-03-30 07:02] LABS: ALB/GLOB RATIO 0.9 (1.0-2.1); ALBUMIN 3.3 g/dL (3.5-5.0); CALCIUM 9.4 mg/dL (8.4-10.2)
[2018-03-30] MEDS ORDERED: Sod Polystyrene Sulf 15 gm/60 ml Susp PO ONE (08:02)
[2018-03-30] MEDS: Magnesium Oxide 400 mg Tab UD PO SCH (09:09)
[2018-03-30] MEDS: Simethicone 80 mg Chewtab PO SCH ×4 (09:10→21:40)
[2018-03-30] MEDS: POLYETHYLENE GLYCOL 3350 17 GM/Dose PACKET PO SCH (09:11)
--- NOTE | 2018-03-30 09:33 | CP.PCM.PN ---
<Renae Alvarado - Last Filed: 03/30/18 12:00> Subjective - Date & Time of Evaluation Date of Evaluation: 03/30/18 Time of Evaluation: 09:30 - Subjective Subjective: Patient seen and examined at bedside. Labs, charts and nurse notes reviewed. Prefers communicating via writing; refused email designer. Patient sitting up in bed, breathing comfortably. He reports improved headache. Denies chest pain, SOB. Endorses having a good appetite. Objective - Vital Signs/Intake and Output Vital Signs (last 24 hours): Temp Pulse Resp BP Pulse Ox 97.2 F L 99 H 18 97/64 L 100 03/30/18 08:09 03/30/18 09:10 03/30/18 08:09 03/30/18 09:11 03/30/18 08:09 Intake and Output: 03/30/18 03/30/18 06:59 18:59 Intake Total 180 Output Total 300 Balance -120 - Medications Medications: Current Medications Albuterol/Ipratropium (Duoneb 3 Mg/0.5 Mg (3 Ml) Ud) 3 ml INH RQ6 PRN PRN Reason: Shortness of Breath Bisacodyl (Dulcolax) 10 mg [place] Q12 PRN PRN Reason: Constipation Carvedilol (Coreg) 6.25 mg PO Q12 [facility] Last Admin: 03/30/18 09:10 Dose: 6.25 mg Furosemide (Lasix) 40 mg IVP Q12 [facility] Last Admin: 03/30/18 09:11 Dose: Not Given Heparin Sodium (Porcine) (Heparin) 5,000 units SC Q8 [facility]; Protocol Last Admin: 03/30/18 09:10 Dose: 5,000 units Ibuprofen (Motrin Tab) 400 mg PO Q6 PRN PRN Reason: Pain, Mild (1-3) Magnesium Oxide (Mag-Ox) 400 mg PO DAILY [facility] Last Admin: 03/30/18 09:09 Dose: 400 mg Polyethylene Glycol (Miralax) 17 gm PO DAILY [facility] Last Admin: 03/30/18 09:11 Dose: 17 gm Simethicone (Mylicon Chew Tab) 80 mg PO QID [facility] Last Admin: 03/30/18 09:10 Dose: 80 mg Sitagliptin Phosphate (Januvia) 100 mg PO DAILY [facility] Last Admin: 03/30/18 09:10 Dose: 100 mg Spironolactone (Aldactone) 12.5 mg PO DAILY [facility] Tramadol HCl (Ultram) 50 mg PO BID PRN PRN Reason: Pain, moderate (4-7) - Labs Labs: 03/30/18 06:00 03/30/18 06:00 PT 15.6 Seconds (9.8-13.1) H 03/28/18 09:50 INR 1.4 03/28/18 09:50 APTT 32.3 Seconds (25.6-37.1) 03/28/18 09:50 - Constitutional Appears: No Acute Distress - Respiratory Exam Respiratory Exam: Clear to Ausculation Bilateral - Cardiovascular Exam Cardiovascular Exam: Tachycardia, Gallop, +S1, +S2 - GI/Abdominal Exam GI & Abdominal Exam: Distended, Soft, Normal Bowel Sounds. absent: Guarding, Rigid, Tenderness - Extremities Exam Extremities Exam: Full ROM. absent: Calf Tenderness, Pedal Edema - Neurological Exam Neurological Exam: Alert, Awake - Psychiatric Exam Psychiatric exam: Normal Affect - Skin Skin Exam: Dry, Intact, Warm Assessment and Plan - Assessment and Plan (Free Text) Assessment: 57 y/o deaf/mute male w/ pmhx of dilated cardiomyopathy (EF 12%) s/p AICD, cardiac arrhythmias, CKD, liver cirrhosis, ascites, bladder cancer, BPH, who was admitted due to symptomatic hypotension secondary to extensive cardiac comorbidities. Plan: 1) CHF EF of 12% Cardiology consulted; appreciate recs: Coreg increased to 6.25 mg BID Lasix 40 IV BID d/c: flomax, Spironolactone Fluid restriction: 1 L daily Moreno to be dc; monitor for fluid retention Heart healthy diet 2) Ascitis Abdominal distension persists hx chronic alcohol abuse Pt noted to be increase work of breathing at rest when admitted. Breathing more comfortably today when sitting up GI: Dr. Stewart consulted Abdominal u/s ordered CXR pending Will check hepatitis panel 3) Acute on Chronic renal insufficiency Cr: 1.5>2.5>2.6>2.2 Fluid restriction: 1 L daily 2/2 CHF f/u BMP Avoid nephrotoxic agents 4) Hyperkalemia K: 6.4 > 5.9 >5.5 trending down s/p Keyaxalate will give Keyaxalate 15mg PO x1 today recheck BMP 5) Urinary retention BPH with Bladder cancer Moreno catheter discontinued. pt reports normal urinary function prior to hospital admission. Flomax discontinued 6) DM2 Chronic Accuchecks ISS protocol Hypoglycemia protocol 7) DVT prophylaxis Heparin 5,000 units SC Q8 8) PT eval and treat strengthening <Rose Hernandez - Last Filed: 03/30/18 15:29> Objective - Vital Signs/Intake and Output Vital Signs (last 24 hours): Temp Pulse Resp BP Pulse Ox 97.3 F L 119 H 18 98/74 L 98 03/30/18 11:58 03/30/18 11:58 03/30/18 11:58 03/30/18 11:58 03/30/18 11:58 Intake and Output: 03/30/18 03/30/18 06:59 18:59 Intake Total 180 Output Total 300 Balance -120 - Medications Medications: Current Medications Albuterol/Ipratropium (Duoneb 3 Mg/0.5 Mg (3 Ml) Ud) 3 ml INH RQ6 PRN PRN Reason: Shortness of Breath Bisacodyl (Dulcolax) 10 mg [place] Q12 PRN PRN Reason: Constipation Carvedilol (Coreg) 6.25 mg PO Q12 [facility] Last Admin: 03/30/18 09:10 Dose: 6.25 mg Furosemide (Lasix) 40 mg IVP Q12 [facility] Last Admin: 03/30/18 09:11 Dose: Not Given Heparin Sodium (Porcine) (Heparin) 5,000 units SC Q8 [facility]; Protocol Last Admin: 03/30/18 09:10 Dose: 5,000 units Magnesium Oxide (Mag-Ox) 400 mg PO DAILY [facility] Last Admin: 03/30/18 09:09 Dose: 400 mg Polyethylene Glycol (Miralax) 17 gm PO DAILY [facility] Last Admin: 03/30/18 09:11 Dose: 17 gm Simethicone (Mylicon Chew Tab) 80 mg PO QID [facility] Last Admin: 03/30/18 12:43 Dose: 80 mg Sitagliptin Phosphate (Januvia) 100 mg PO DAILY [facility] Last Admin: 03/30/18 09:10 Dose: 100 mg Spironolactone (Aldactone) 12.5 mg PO DAILY [facility] Tramadol HCl (Ultram) 50 mg PO BID PRN PRN Reason: Pain, moderate (4-7) - Labs Labs: 03/30/18 06:00 03/30/18 06:00 PT 15.6 Seconds (9.8-13.1) H 03/28/18 09:50 INR 1.4 03/28/18 09:50 APTT 32.3 Seconds (25.6-37.1) 03/28/18 09:50 Attending/Attestation - Attestation I have personally seen and examined this patient.: Yes I have fully participated in the care of the patient.: Yes I have reviewed all pertinent clinical information, including history, physical exam and plan: Yes Notes (Text): 03/30/18 15:29 Seen examined and discussed with resident. Agree with findings and plan as above.
--- NOTE | 2018-03-30 10:14 | CP.PCM.PN ---
Subjective - Date & Time of Evaluation Date of Evaluation: 03/30/18 Time of Evaluation: 09:40 - Subjective Subjective: Patient's clinical state has not changed significantly. In spite of intravenous furosemide twice a day the patient has had a total urine output of 460 mL over last 24 hours. He continues to display atrial flutter with a variable AV conduction and a heart rate between 90 and 100 bpm. His blood pressure was 96/70 mmHg. His jugular venous pressure was mildly elevated and there were few rales at both bases. A loud S3 gallop was audible. His lab tests show a creatinine level of 2.2 mg percent and an improved BUN His serum potassium level was 5.5 mg/L and his Aldactone is being held. I have requested an additional does of 40 mg of furosemide intravenously so as to diurese him some more. Objective - Vital Signs/Intake and Output Vital Signs (last 24 hours): Temp Pulse Resp BP Pulse Ox 97.2 F L 99 H 18 97/64 L 100 03/30/18 08:09 03/30/18 09:10 03/30/18 08:09 03/30/18 09:11 03/30/18 08:09 Intake and Output: 03/30/18 03/30/18 06:59 18:59 Intake Total 180 Output Total 300 Balance -120 - Medications Medications: Current Medications Albuterol/Ipratropium (Duoneb 3 Mg/0.5 Mg (3 Ml) Ud) 3 ml INH RQ6 PRN PRN Reason: Shortness of Breath Bisacodyl (Dulcolax) 10 mg [place] Q12 PRN PRN Reason: Constipation Carvedilol (Coreg) 6.25 mg PO Q12 [facility] Last Admin: 03/30/18 09:10 Dose: 6.25 mg Furosemide (Lasix) 40 mg IVP Q12 [facility] Last Admin: 03/30/18 09:11 Dose: Not Given Furosemide (Lasix) 40 mg IVP ONCE ONE Stop: 03/30/18 10:10 Heparin Sodium (Porcine) (Heparin) 5,000 units SC Q8 [facility]; Protocol Last Admin: 03/30/18 09:10 Dose: 5,000 units Magnesium Oxide (Mag-Ox) 400 mg PO DAILY [facility] Last Admin: 03/30/18 09:09 Dose: 400 mg Polyethylene Glycol (Miralax) 17 gm PO DAILY [facility] Last Admin: 03/30/18 09:11 Dose: 17 gm Simethicone (Mylicon Chew Tab) 80 mg PO QID [facility] Last Admin: 03/30/18 09:10 Dose: 80 mg Sitagliptin Phosphate (Januvia) 100 mg PO DAILY [facility] Last Admin: 03/30/18 09:10 Dose: 100 mg Spironolactone (Aldactone) 12.5 mg PO DAILY [facility] Tramadol HCl (Ultram) 50 mg PO BID PRN PRN Reason: Pain, moderate (4-7) - Labs Labs: 03/30/18 06:00 03/30/18 06:00 PT 15.6 Seconds (9.8-13.1) H 03/28/18 09:50 INR 1.4 03/28/18 09:50 APTT 32.3 Seconds (25.6-37.1) 03/28/18 09:50
--- NOTE | 2018-03-30 11:06 | RAD ---
Date of service: 03/29/2018 HISTORY: SOB COMPARISON: No prior. TECHNIQUE: Chest PA, apical and lateral FINDINGS: LUNGS: No active pulmonary disease. PLEURA: No significant pleural effusion identified. No pneumothorax apparent. CARDIOVASCULAR: No aortic atherosclerotic calcification present. Cardiomegaly. No pulmonary vascular congestion. OSSEOUS STRUCTURES: No significant abnormalities. VISUALIZED UPPER ABDOMEN: Normal. OTHER FINDINGS: Pacemaker and leads in place. IMPRESSION: No active disease.
--- NOTE | 2018-03-31 02:49 | CON ---
DATE: 03/29/2018 REFERRING PHYSICIAN: Dr. Hernandez. HISTORY OF PRESENT ILLNESS: This is a 57-year-old male who has had a cardiomyopathy with EF of 12%, status post AICD, chronic arrhythmia, CKD, liver cirrhosis, ascites, bladder CA, transferred from TCU, visible hypotension. GI was called especially for the management of ascites. His belly is swollen more than before, otherwise lying in bed comfortable, in no apparent distress. PAST MEDICAL HISTORY: As above. SURGICAL HISTORY: As above. MEDICATIONS: Have been reviewed. REVIEW OF SYSTEMS: All other systems are grossly unremarkable. PHYSICAL EXAMINATION: GENERAL: A pleasant, elderly male, lying in bed comfortable, in no apparent distress. HEENT: Head, normocephalic and atraumatic. Eyes, pupils are equally reactive to light bilaterally. No conjunctival pallor or icterus. NECK: Supple. Normal range of motion. No lymphadenopathy appreciated. LUNGS: Coarse breath sounds bilaterally. HEART: S1 and S2. Regular rate and rhythm. No murmurs appreciated. ABDOMEN: Soft, nontender, nondistended. Bowel sounds present. No rebound. No guarding. RECTAL: Deferred. EXTREMITIES: Pulses present bilaterally. SKIN: Warm, dry, and intact. NEUROLOGIC: A and O x3. LABORATORY DATA: All labs and radiology have been reviewed. Labs include a WBC of 6.9, hemoglobin of 15.1, potassium is 5.9 and improving. INR is 1.4. ProBNP is almost 6000. LFTs are grossly unremarkable with the exception total bilirubin is 12.1. ASSESSMENT AND PLAN: This is a 57-year-old man with chronic cirrhosis and ascites. I felt this is all more likely secondary to cardiac failure, aggressive diuresis as possible. The patient is symptomatic, we will consider paracentesis and normalization of electrolytes as well. I will check hepatitis A, B, and C as well as ultrasound . Thank you for the consult. Khanh Stewart MD/ PhD cc: Dr. Hernandez.
[2018-03-31] MEDS: Simethicone 80 mg Chewtab PO SCH ×4 (09:04→21:29)
[2018-03-31] MEDS: Magnesium Oxide 400 mg Tab UD PO SCH (09:04)
[2018-03-31 09:15] LABS: HEPATITIS B SURFACE AG Negative (NEGATIVE)
[2018-03-31 09:20] LABS: HEPATITIS A IGM NEGATIVE (NEGATIVE)
[2018-03-31 09:33] LABS: HEPATITIS C ANTIBODY NEGATIVE (NEGATIVE)
--- NOTE | 2018-03-31 09:35 | CP.PCM.PN ---
Subjective - Date & Time of Evaluation Date of Evaluation: 03/31/18 Time of Evaluation: 09:00 - Subjective Subjective: The patient was found sitting up in the chair eating his breakfast. Appears fairly comfortable and breathes at 16-18 breaths per minute. Telemetry shows consistent atrial flutter with variable AV conduction and a heart rate between 90 and 110 bpm. His blood pressure was 96/70 mmHg. His jugular venous pressure was not elevated and there were no rales. There was an apical systolic murmur and an S3 gallop. I have requested a complete metabolic profile to evaluate his serum potassium level. The patient has had a total urinary output of almost 850 mL over last 24 hours. He may be allowed to return to transitional care unit continue his physical therapy. His Aldactone and Flomax have been discontinued and his dose of carvedilol has been reduced since his admission his systolic blood pressure has been mostly above 90 mmHg. Objective - Vital Signs/Intake and Output Vital Signs (last 24 hours): Temp Pulse Resp BP Pulse Ox 98.3 F 112 H 20 105/73 100 03/31/18 07:49 03/31/18 09:02 03/31/18 07:49 03/31/18 09:04 03/31/18 07:49 Intake and Output: 03/31/18 03/31/18 06:59 18:59 Output Total 550 Balance -550 - Medications Medications: Current Medications Albuterol/Ipratropium (Duoneb 3 Mg/0.5 Mg (3 Ml) Ud) 3 ml INH RQ6 PRN PRN Reason: Shortness of Breath Bisacodyl (Dulcolax) 10 mg [place] Q12 PRN PRN Reason: Constipation Carvedilol (Coreg) 6.25 mg PO Q12 [facility] Last Admin: 03/31/18 09:02 Dose: 6.25 mg Furosemide (Lasix) 40 mg IVP Q12 [facility] Last Admin: 03/31/18 09:04 Dose: 40 mg Heparin Sodium (Porcine) (Heparin) 5,000 units SC Q8 [facility]; Protocol Last Admin: 03/31/18 09:03 Dose: 5,000 units Magnesium Oxide (Mag-Ox) 400 mg PO DAILY [facility] Last Admin: 03/31/18 09:04 Dose: 400 mg Simethicone (Mylicon Chew Tab) 80 mg PO QID [facility] Last Admin: 03/31/18 09:04 Dose: 80 mg Sitagliptin Phosphate (Januvia) 100 mg PO DAILY [facility] Last Admin: 03/31/18 09:02 Dose: 100 mg Tramadol HCl (Ultram) 50 mg PO BID PRN PRN Reason: Pain, moderate (4-7) - Labs Labs: 03/30/18 06:00 03/30/18 06:00 PT 15.6 Seconds (9.8-13.1) H 03/28/18 09:50 INR 1.4 03/28/18 09:50 APTT 32.3 Seconds (25.6-37.1) 03/28/18 09:50
--- NOTE | 2018-03-31 10:13 | CP.PCM.PN ---
Subjective - Date & Time of Evaluation Date of Evaluation: 03/31/18 Time of Evaluation: 10:12 - Subjective Subjective: no overnight events Objective - Vital Signs/Intake and Output Vital Signs (last 24 hours): Temp Pulse Resp BP Pulse Ox 98.3 F 112 H 20 105/73 100 03/31/18 07:49 03/31/18 09:02 03/31/18 07:49 03/31/18 09:04 03/31/18 07:49 Intake and Output: 03/31/18 03/31/18 06:59 18:59 Output Total 550 Balance -550 - Medications Medications: Current Medications Albuterol/Ipratropium (Duoneb 3 Mg/0.5 Mg (3 Ml) Ud) 3 ml INH RQ6 PRN PRN Reason: Shortness of Breath Bisacodyl (Dulcolax) 10 mg [place] Q12 PRN PRN Reason: Constipation Carvedilol (Coreg) 6.25 mg PO Q12 [facility] Last Admin: 03/31/18 09:02 Dose: 6.25 mg Furosemide (Lasix) 40 mg IVP Q12 [facility] Last Admin: 03/31/18 09:04 Dose: 40 mg Heparin Sodium (Porcine) (Heparin) 5,000 units SC Q8 [facility]; Protocol Last Admin: 03/31/18 09:03 Dose: 5,000 units Magnesium Oxide (Mag-Ox) 400 mg PO DAILY [facility] Last Admin: 03/31/18 09:04 Dose: 400 mg Simethicone (Mylicon Chew Tab) 80 mg PO QID [facility] Last Admin: 03/31/18 09:04 Dose: 80 mg Sitagliptin Phosphate (Januvia) 100 mg PO DAILY [facility] Last Admin: 03/31/18 09:02 Dose: 100 mg Tramadol HCl (Ultram) 50 mg PO BID PRN PRN Reason: Pain, moderate (4-7) - Labs Labs: 03/30/18 06:00 03/30/18 06:00 PT 15.6 Seconds (9.8-13.1) H 03/28/18 09:50 INR 1.4 03/28/18 09:50 APTT 32.3 Seconds (25.6-37.1) 03/28/18 09:50 - Head Exam Head Exam: NORMOCEPHALIC - Neck Exam Neck Exam: Normal Inspection - Respiratory Exam Respiratory Exam: Rhonchi, NORMAL BREATHING PATTERN - Cardiovascular Exam Cardiovascular Exam: REGULAR RHYTHM - GI/Abdominal Exam GI & Abdominal Exam: Soft, Normal Bowel Sounds Assessment and Plan - Assessment and Plan (Free Text) Assessment: 57 yo male with ascites cpm carido input diuresis if possible
--- NOTE | 2018-03-31 10:40 | CP.PCM.PN ---
<Edmund Worthington - Last Filed: 03/31/18 11:40> Subjective - Date & Time of Evaluation Date of Evaluation: 03/31/18 Time of Evaluation: 08:00 - Subjective Subjective: Pt was seen and evaluated sitting upright. Denies acute overnight events. Reports normal bowel movement; last this morning. Requests for brizuela to be removed and has urinary urge. Afebrile. Voyce: Lolis ID [id number] Objective - Vital Signs/Intake and Output Vital Signs (last 24 hours): Temp Pulse Resp BP Pulse Ox 98.3 F 112 H 20 105/73 100 03/31/18 07:49 03/31/18 09:02 03/31/18 07:49 03/31/18 09:04 03/31/18 07:49 Intake and Output: 03/31/18 03/31/18 06:59 18:59 Output Total 550 Balance -550 - Medications Medications: Current Medications Albuterol/Ipratropium (Duoneb 3 Mg/0.5 Mg (3 Ml) Ud) 3 ml INH RQ6 PRN PRN Reason: Shortness of Breath Bisacodyl (Dulcolax) 10 mg [place] Q12 PRN PRN Reason: Constipation Carvedilol (Coreg) 6.25 mg PO Q12 [facility] Last Admin: 03/31/18 09:02 Dose: 6.25 mg Furosemide (Lasix) 40 mg IVP Q12 [facility] Last Admin: 03/31/18 09:04 Dose: 40 mg Heparin Sodium (Porcine) (Heparin) 5,000 units SC Q8 [facility]; Protocol Last Admin: 03/31/18 09:03 Dose: 5,000 units Magnesium Oxide (Mag-Ox) 400 mg PO DAILY [facility] Last Admin: 03/31/18 09:04 Dose: 400 mg Simethicone (Mylicon Chew Tab) 80 mg PO QID [facility] Last Admin: 03/31/18 09:04 Dose: 80 mg Sitagliptin Phosphate (Januvia) 100 mg PO DAILY [facility] Last Admin: 03/31/18 09:02 Dose: 100 mg Tamsulosin HCl (Flomax) 0.8 mg PO DAILY [facility] Tramadol HCl (Ultram) 50 mg PO BID PRN PRN Reason: Pain, moderate (4-7) - Labs Labs: 03/30/18 06:00 03/30/18 06:00 PT 15.6 Seconds (9.8-13.1) H 03/28/18 09:50 INR 1.4 03/28/18 09:50 APTT 32.3 Seconds (25.6-37.1) 03/28/18 09:50 - Constitutional Appears: Well, Non-toxic - Eye Exam Eye Exam: EOMI Pupil Exam: PERRL - Neck Exam Neck Exam: Full ROM - Respiratory Exam Respiratory Exam: Clear to Ausculation Bilateral, NORMAL BREATHING PATTERN. absent: Wheezes - Cardiovascular Exam Cardiovascular Exam: Gallop, +S1, +S2, Murmur (apical) - GI/Abdominal Exam GI & Abdominal Exam: Soft, Normal Bowel Sounds. absent: Tenderness - Extremities Exam Extremities Exam: Pedal Edema (bilateral). absent: Calf Tenderness - Neurological Exam Neurological Exam: Alert, Awake, Oriented x3 (Deaf; uses Sign language) - Psychiatric Exam Psychiatric exam: Normal Affect, Normal Mood Assessment and Plan - Assessment and Plan (Free Text) Assessment: 57 y/o deaf/mute male w/ pmhx of dilated cardiomyopathy (EF 12%) s/p AICD, cardiac arrhythmias, CKD, liver cirrhosis, ascites, bladder cancer, BPH, who was admitted due to symptomatic hypotension secondary to extensive cardiac comorbidities. Plan: CHF EF of 12% Cardiology: Dr. Mitchell: Coreg increased to 6.25 mg BID Lasix 40 IV BID d/c: Spironolactone Fluid restriction: 1 L daily Brizuela to be dc; monitor for fluid retention Heart healthy diet Ascitis Abdominal distension persists hx chronic alcohol abuse Pt noted to be increase work of breathing at rest when admitted. Breathing more comfortably today when sitting up GI: Dr. Stewart on board Abdominal u/s: 03/29: Mass lesion upper pole of left kidney. Multiphasic CT scan of kidneys advised. Hepatomegaly/cirrhotic contour of the liver CXR: no active disease Hepatitis panel: negative Acute on Chronic renal insufficiency Cr: 1.5>2.5>2.6>2.2 Fluid restriction: 1 L daily 2/2 CHF f/u BMP Hyperkalemia K: 6.4 > 5.9 >5.5 trending down s/p Keyaxalate: 30 mg, 15 mg, 15 mg recheck BMP: pending Urinary retention BPH with Bladder cancer Brizuela catheter discontinued. pt reports normal urinary function prior to hospital admission. Flomax restarted today Will monitor for voluntary void DM2 Chronic Accuchecks ISS protocol Hypoglycemia protocol DVT prophylaxis Heparin 5,000 units SC Q8 PT eval and treat strengthening Pending family meeting. Case dw Dr. Rodolfo Worthington MD PGY2 <Sindy Reynolds - Last Filed: 03/31/18 15:59> Objective - Vital Signs/Intake and Output Vital Signs (last 24 hours): Temp Pulse Resp BP Pulse Ox 98 F 108 H 20 95/55 L 99 03/31/18 12:38 03/31/18 12:38 03/31/18 12:38 03/31/18 12:38 03/31/18 12:38 Intake and Output: 03/31/18 03/31/18 06:59 18:59 Output Total 550 Balance -550 - Medications Medications: Current Medications Albuterol/Ipratropium (Duoneb 3 Mg/0.5 Mg (3 Ml) Ud) 3 ml INH RQ6 PRN PRN Reason: Shortness of Breath Bisacodyl (Dulcolax) 10 mg [place] Q12 PRN PRN Reason: Constipation Carvedilol (Coreg) 6.25 mg PO Q12 [facility] Last Admin: 03/31/18 09:02 Dose: 6.25 mg Finasteride (Proscar) 5 mg PO DAILY [facility] Furosemide (Lasix) 40 mg IVP Q12 [facility] Last Admin: 03/31/18 09:04 Dose: 40 mg Heparin Sodium (Porcine) (Heparin) 5,000 units SC Q8 [facility]; Protocol Last Admin: 03/31/18 09:03 Dose: 5,000 units Magnesium Oxide (Mag-Ox) 400 mg PO DAILY [facility] Last Admin: 03/31/18 09:04 Dose: 400 mg Simethicone (Mylicon Chew Tab) 80 mg PO QID [facility] Last Admin: 03/31/18 09:04 Dose: 80 mg Sitagliptin Phosphate (Januvia) 100 mg PO DAILY [facility] Last Admin: 03/31/18 09:02 Dose: 100 mg Tamsulosin HCl (Flomax) 0.8 mg PO DAILY [facility] - Labs Labs: 03/30/18 06:00 03/31/18 11:47 PT 15.6 Seconds (9.8-13.1) H 03/28/18 09:50 INR 1.4 03/28/18 09:50 APTT 32.3 Seconds (25.6-37.1) 03/28/18 09:50 Attending/Attestation - Attestation I have personally seen and examined this patient.: Yes I have fully participated in the care of the patient.: Yes I have reviewed all pertinent clinical information, including history, physical exam and plan: Yes Notes (Text): CHF exacerbation, systolic dysfunction EF 20% Atrial Flutter - cont Lasix , Coreg Liver Cirrhosis -cont Lasix, BB -Paracentesis for comfort Renal Mass Bladder Mass Prostate Enalargement - seen by Urology - Dr Castro , plan for TURP and further eval once pt's cardiac status is stable Physical Deconditioning -Physical Therapy - may benefit from PAOLA placement
--- NOTE | 2018-03-31 10:54 | US ---
Date of service: 03/30/2018 HISTORY: cirrhosis? COMPARISON: None. TECHNIQUE: Sonographic evaluation of the abdomen. FINDINGS: LIVER: Measures 21.9 cm. Variable echogenicity of the liver parenchyma. Nodular contour to the liver consistent with clinically suspected cirrhosis. No mass. No intrahepatic bile duct dilatation. GALLBLADDER: Gallbladder wall thickening accentuated by poorly distended gallbladder. Gallstones are not visible. COMMON BILE DUCT: Measures 3.3 mm. No stones. No dilatation. PANCREAS: Unremarkable as visualized. No mass. No ductal dilatation. RIGHT KIDNEY: Measures 4.4 x 10.6cm. Normal echogenicity. No calculus, mass, or hydronephrosis. LEFT KIDNEY: Measures 4.3 x 9.4cm. Solid mass upper pole left kidney 2.5 x 2.5 x 3.3 cm. SPLEEN: Normal in size and contour. No mass. AORTA: No aneurysmal dilatation. IVC: Unremarkable. OTHER FINDINGS: None. IMPRESSION: Mass lesion upper pole left kidney. Multiphasic CT scan of the kidneys advised. Hepatomegaly/cirrhotic contour to the liver.
--- NOTE | 2018-03-31 11:30 | CARD ---
APPROVED REPORT Date of service: 03/30/2018 EKG Measurement Heart [id number] CT P135 [id number] <Conclusion> Atrial flutter with variable AV block with premature ventricular or aberrantly conducted complexes Left axis deviation Inferior infarct, age undetermined Abnormal ECG
[2018-03-31 12:25] LABS: ALB/GLOB RATIO 0.9 (1.0-2.1); ALBUMIN 3.3 g/dL (3.5-5.0); CALCIUM 9.5 mg/dL (8.4-10.2)
[2018-04-01 05:44] LABS: HEMOGLOBIN 13.9 g/dL (12.0-18.0); MEAN CELL VOLUME 94.8 fl (80.0-94.0); MEAN CORPUSCULAR HEMOGLOBIN 30.4 pg (27.0-31.0); RBC 4.59 Mil/uL (4.40-5.90); RED CELL DISTRIBUTION WIDTH 20.9 % (11.5-14.5); WHITE BLOOD COUNT 6.1 K/uL (4.8-10.8)
[2018-04-01 05:59] LABS: CALCIUM 9.5 mg/dL (8.4-10.2)
[2018-04-01 06:01] LABS: INR 1.3; PROTHROMBIN TIME 14.7 Seconds (9.8-13.1)
[2018-04-01 06:02] LABS: PARTIAL THROMBOPLASTIN TIME 30.9 Seconds (25.6-37.1)
--- NOTE | 2018-04-01 06:56 | CP.PCM.PN ---
Subjective - Date & Time of Evaluation Date of Evaluation: 04/01/18 Time of Evaluation: 07:00 - Subjective Subjective: Pending discharge to [facility] pending recs from IR for possible paracentesis. Pt to f/u with urology Objective - Vital Signs/Intake and Output Vital Signs (last 24 hours): Temp Pulse Resp BP Pulse Ox 97.6 F 120 H 20 98/65 L 100 04/01/18 04:50 04/01/18 04:50 04/01/18 04:50 04/01/18 04:50 04/01/18 04:50 Intake and Output: 03/31/18 04/01/18 18:59 06:59 Intake Total 1000 Output Total 600 1100 Balance 400 -1100 - Medications Medications: Current Medications Albumin Human (Albumin Human 25% (12.5 Gm/50 Ml)) 25 gm IV ONCE ONE Stop: 04/01/18 09:01 Albuterol/Ipratropium (Duoneb 3 Mg/0.5 Mg (3 Ml) Ud) 3 ml INH RQ6 PRN PRN Reason: Shortness of Breath Bisacodyl (Dulcolax) 10 mg ND Q12 PRN PRN Reason: Constipation Carvedilol (Coreg) 6.25 mg PO Q12 [facility] Last Admin: 03/31/18 21:29 Dose: 6.25 mg Finasteride (Proscar) 5 mg PO DAILY [facility] Last Admin: 03/31/18 21:29 Dose: 5 mg Furosemide (Lasix) 40 mg IVP Q12 [facility] Last Admin: 03/31/18 21:30 Dose: 40 mg Heparin Sodium (Porcine) (Heparin) 5,000 units SC Q8 [facility]; Protocol Last Admin: 03/31/18 09:03 Dose: 5,000 units Magnesium Oxide (Mag-Ox) 400 mg PO DAILY [facility] Last Admin: 03/31/18 09:04 Dose: 400 mg Simethicone (Mylicon Chew Tab) 80 mg PO QID [facility] Last Admin: 03/31/18 21:29 Dose: Not Given Tamsulosin HCl (Flomax) 0.8 mg PO DAILY [facility] Last Admin: 03/31/18 14:00 Dose: 0.8 mg - Labs Labs: 04/01/18 04:25 04/01/18 04:25 PT 14.7 Seconds (9.8-13.1) H 04/01/18 04:25 INR 1.3 04/01/18 04:25 APTT 30.9 Seconds (25.6-37.1) 04/01/18 04:25
[2018-04-01 08:25] VITALS: RESP 18
[2018-04-01] MEDS: Simethicone 80 mg Chewtab PO SCH ×4 (08:25→21:05)
[2018-04-01] MEDS ORDERED: Albumin Human 25% (12.5 gm/50 ml) IV ONE (09:00)
[2018-04-01] MEDS: Magnesium Oxide 400 mg Tab UD PO SCH (10:23)
[2018-04-01 13:33] VITALS: O2SAT 100
--- NOTE | 2018-04-01 13:33 | CP.PCM.DIS ---
<Edmund Worthington - Last Filed: 04/01/18 16:40> Provider - Provider Date of Admission: 03/28/18 09:21 Attending physician: Onedya Oliveros MD Primary care physician: Oneyda Oliveros MD Consults: 03/28/18 10:44 Cardiology Consult Stat Comment: Consulting Provider: Kris Mitchell V Consulting Physician: Kris Mitchell V Reason for Consult: chf 03/29/18 09:30 Gastroenterology Consult Routine Comment: Consulting Provider: Khanh Stewart Consulting Physician: Khanh Stewart Reason for Consult: ascitis with SOB Time Spent in preparation of Discharge (in minutes): 30 Hospital Course - Lab Results Lab Results: Most Recent Lab Values WBC 6.1 K/uL (4.8-10.8) 04/01/18 04:25 RBC 4.59 Mil/uL (4.40-5.90) 04/01/18 04:25 Hgb 13.9 g/dL (12.0-18.0) 04/01/18 04:25 Hct 43.5 % (35.0-51.0) 04/01/18 04:25 MCV 94.8 fl (80.0-94.0) H D 04/01/18 04:25 MCH 30.4 pg (27.0-31.0) 04/01/18 04:25 MCHC 32.0 g/dL (33.0-37.0) L 04/01/18 04:25 RDW 20.9 % (11.5-14.5) H 04/01/18 04:25 Plt Count 241 K/uL (130-400) 04/01/18 04:25 MPV 8.5 fl (7.2-11.7) 03/28/18 09:50 Neut % (Auto) 64.6 % (50.0-75.0) 03/28/18 09:50 Lymph % (Auto) 20.8 % (20.0-40.0) 03/28/18 09:50 Barren % (Auto) 10.7 % (0.0-10.0) H 03/28/18 09:50 Eos % (Auto) 2.3 % (0.0-4.0) 03/28/18 09:50 Baso % (Auto) 1.6 % (0.0-2.0) 03/28/18 09:50 Neut # (Auto) 3.8 K/uL (1.8-7.0) 03/28/18 09:50 Lymph # (Auto) 1.2 K/uL (1.0-4.3) 03/28/18 09:50 Barren # (Auto) 0.6 K/uL (0.0-0.8) 03/28/18 09:50 Eos # (Auto) 0.1 K/uL (0.0-0.7) 03/28/18 09:50 Baso # (Auto) 0.1 K/uL (0.0-0.2) 03/28/18 09:50 PT 14.7 Seconds (9.8-13.1) H 04/01/18 04:25 INR 1.3 04/01/18 04:25 APTT 30.9 Seconds (25.6-37.1) 04/01/18 04:25 Sodium 139 mmol/l (132-148) 04/01/18 04:25 Potassium 4.8 MMOL/L (3.6-5.0) 04/01/18 04:25 Chloride 97 mmol/L (98-107) L 04/01/18 04:25 Carbon Dioxide 29 mmol/L (22-30) 04/01/18 04:25 Anion Gap 18 (10-20) 04/01/18 04:25 BUN 57 mg/dl (9-20) H 04/01/18 04:25 Creatinine 1.9 mg/dl (0.8-1.5) H 04/01/18 04:25 Est GFR ( Amer) 44 04/01/18 04:25 Est GFR (Non-Af Amer) 37 04/01/18 04:25 POC Glucose (mg/dL) 149 mg/dL (65-110) H 04/01/18 11:24 Random Glucose 93 mg/dL (75-110) 04/01/18 04:25 Calcium 9.5 mg/dL (8.4-10.2) 04/01/18 04:25 Magnesium 2.4 MG/DL (1.6-2.3) H 03/29/18 06:00 Total Bilirubin 3.7 mg/dl (0.2-1.3) H 03/31/18 11:47 AST 28 U/L (17-59) 03/31/18 11:47 ALT 28 U/L (21-72) 03/31/18 11:47 Alkaline Phosphatase 444 U/L (38-126) H 03/31/18 11:47 Troponin I 0.0600 ng/mL (0.00-0.120) 03/28/18 10:45 NT-Pro-B Natriuret Pep 5990 pg/ml (0-900) H 03/28/18 10:45 Total Protein 7.0 G/DL (6.3-8.2) 03/31/18 11:47 Albumin 3.3 g/dL (3.5-5.0) L 03/31/18 11:47 Globulin 3.8 gm/dL (2.2-3.9) 03/31/18 11:47 Albumin/Globulin Ratio 0.9 (1.0-2.1) L 03/31/18 11:47 Hepatitis A IgM Ab Negative (NEGATIVE) 03/30/18 10:15 Hep Bs Antigen Negative (NEGATIVE) 03/30/18 10:15 Hep Bs Antibody Negative (NEGATIVE) 03/30/18 10:15 Hepatitis C Antibody Negative (NEGATIVE) 03/30/18 10:15 - Hospital Course Hospital Course: 57 y/o deaf/mute male w/ pmhx of dilated cardiomyopathy (EF 12%) s/p AICD, cardiac arrhythmias, CKD, liver cirrhosis, ascites, bladder cancer, BPH, who was admitted due to symptomatic hypotension secondary to extensive cardiac com orbidities. Abdominal u/s: 03/29: Mass lesion upper pole of left kidney. Multiphasic CT scan of kidneys advised. Hepatomegaly/cirrhotic contour of the liver CHF: EF of 12%; eval by Cardiology Dr. Mitchell; Final Coreg dose adjusted to 6.25 mg BID, Treated with lasix 40 mg IV bid. Fluid restricted to 1 L/day and salt restriction. Ascites: pt has distension of abdomen with fluid. Hx of paracentesis. Hepatitis panel negative. GI: Dr. Stewart Acute on Chronic renal insufficiency: Fluid restriction Urinary retention: likely secondary to bladder cancer and BPH. Brizuela catheter in place. Trial of brizuela removal unsuccessful. Transient hyperkalemia: resolved with Keyexalate; 30mg, 15 mg x2 Spironolactone was discontinued due to hyperkalemia Bedside PT for strengthening/deconditioning Pt to follow up with Dr. Castro for possible TUR and TURP; urinary retention 2/2 bladder cancer and BPH Cardiology: Dr. Love 1 week GI: in 2 weeks; may need subsequent paracentesis Discharge to [facility] with: Lasix, coreg, proscar Case dw Dr. Rodolfo Worthington MD PGY2 Discharge Exam - Head Exam Head Exam: NORMOCEPHALIC - Eye Exam Eye Exam: EOMI - ENT Exam ENT Exam: Mucous Membranes Moist - Neck Exam Neck exam: Full Rom - Respiratory Exam Respiratory Exam: Clear to PA & Lateral, NORMAL BREATHING PATTERN. absent: Wheezes - Cardiovascular Exam Cardiovascular Exam: Tachycardia, Gallop, +S1, +S2 Additional comments: flutter - GI/Abdominal Exam GI & Abdominal Exam: Distended. absent: Guarding - Back Exam Back exam: absent: CVA tenderness (L), CVA tenderness (R) - Neurological Exam Neurological exam: Alert, Oriented x3 - Psychiatric Exam Psychiatric exam: Normal Affect, Normal Mood Discharge Plan - Discharge Medications Prescriptions: Furosemide [Lasix] 40 mg PO Q12 #1 tab - Follow Up Plan Condition: FAIR Disposition: TRANSF TO SNF Instructions: Low Blood Pressure (DC), Heart Failure (DC), Pacemaker (DC), Pulmonary Edema (DC), How to Choose a Hearing Aid (DC), Hearing Loss (DC), Renal Failure Diet (DC), Ascites (DC) Additional Instructions: appt with Dr Castro for poss TUR and TURP in 2 wks Cardio appt - Dr Love in 1 wk appt with GI in 2 wks, may need Paracentesis in 1-2 wks discharge pt to [facility] Referrals: Kris Mitchell MD [Staff Provider] - Oneyda Oliveros MD [Primary Care Provider] - <Sindy Reynolds - Last Filed: 04/01/18 17:19> Provider - Provider Date of Admission: 03/28/18 09:21 Attending physician: Oneyda Oliveros MD Primary care physician: Oneyda Oliveros MD Consults: 03/28/18 10:44 Cardiology Consult Stat Comment: Consulting Provider: Kris Mitchell V Consulting Physician: Kris Mitchell V Reason for Consult: chf 03/29/18 09:30 Gastroenterology Consult Routine Comment: Consulting Provider: Khanh Stewart Consulting Physician: Khanh Stewart Reason for Consult: ascitis with SOB Hospital Course - Lab Results Lab Results: Most Recent Lab Values WBC 6.1 K/uL (4.8-10.8) 04/01/18 04:25 RBC 4.59 Mil/uL (4.40-5.90) 04/01/18 04:25 Hgb 13.9 g/dL (12.0-18.0) 04/01/18 04:25 Hct 43.5 % (35.0-51.0) 04/01/18 04:25 MCV 94.8 fl (80.0-94.0) H D 04/01/18 04:25 MCH 30.4 pg (27.0-31.0) 04/01/18 04:25 MCHC 32.0 g/dL (33.0-37.0) L 04/01/18 04:25 RDW 20.9 % (11.5-14.5) H 04/01/18 04:25 Plt Count 241 K/uL (130-400) 04/01/18 04:25 MPV 8.5 fl (7.2-11.7) 03/28/18 09:50 Neut % (Auto) 64.6 % (50.0-75.0) 03/28/18 09:50 Lymph % (Auto) 20.8 % (20.0-40.0) 03/28/18 09:50 Barren % (Auto) 10.7 % (0.0-10.0) H 03/28/18 09:50 Eos % (Auto) 2.3 % (0.0-4.0) 03/28/18 09:50 Baso % (Auto) 1.6 % (0.0-2.0) 03/28/18 09:50 Neut # (Auto) 3.8 K/uL (1.8-7.0) 03/28/18 09:50 Lymph # (Auto) 1.2 K/uL (1.0-4.3) 03/28/18 09:50 Barren # (Auto) 0.6 K/uL (0.0-0.8) 03/28/18 09:50 Eos # (Auto) 0.1 K/uL (0.0-0.7) 03/28/18 09:50 Baso # (Auto) 0.1 K/uL (0.0-0.2) 03/28/18 09:50 PT 14.7 Seconds (9.8-13.1) H 04/01/18 04:25 INR 1.3 04/01/18 04:25 APTT 30.9 Seconds (25.6-37.1) 04/01/18 04:25 Sodium 139 mmol/l (132-148) 04/01/18 04:25 Potassium 4.8 MMOL/L (3.6-5.0) 04/01/18 04:25 Chloride 97 mmol/L (98-107) L 04/01/18 04:25 Carbon Dioxide 29 mmol/L (22-30) 04/01/18 04:25 Anion Gap 18 (10-20) 04/01/18 04:25 BUN 57 mg/dl (9-20) H 04/01/18 04:25 Creatinine 1.9 mg/dl (0.8-1.5) H 04/01/18 04:25 Est GFR ( Amer) 44 04/01/18 04:25 Est GFR (Non-Af Amer) 37 04/01/18 04:25 POC Glucose (mg/dL) 97 mg/dL (65-110) 04/01/18 16:18 Random Glucose 93 mg/dL (75-110) 04/01/18 04:25 Calcium 9.5 mg/dL (8.4-10.2) 04/01/18 04:25 Magnesium 2.4 MG/DL (1.6-2.3) H 03/29/18 06:00 Total Bilirubin 3.7 mg/dl (0.2-1.3) H 03/31/18 11:47 AST 28 U/L (17-59) 03/31/18 11:47 ALT 28 U/L (21-72) 03/31/18 11:47 Alkaline Phosphatase 444 U/L (38-126) H 03/31/18 11:47 Troponin I 0.0600 ng/mL (0.00-0.120) 03/28/18 10:45 NT-Pro-B Natriuret Pep 5990 pg/ml (0-900) H 03/28/18 10:45 Total Protein 7.0 G/DL (6.3-8.2) 03/31/18 11:47 Albumin 3.3 g/dL (3.5-5.0) L 03/31/18 11:47 Globulin 3.8 gm/dL (2.2-3.9) 03/31/18 11:47 Albumin/Globulin Ratio 0.9 (1.0-2.1) L 03/31/18 11:47 Hepatitis A IgM Ab Negative (NEGATIVE) 03/30/18 10:15 Hep Bs Antigen Negative (NEGATIVE) 03/30/18 10:15 Hep Bs Antibody Negative (NEGATIVE) 03/30/18 10:15 Hepatitis C Antibody Negative (NEGATIVE) 03/30/18 10:15 Attending/Attestation - Attestation I have personally seen and examined this patient.: Yes I have fully participated in the care of the patient.: Yes I have reviewed all pertinent clinical information, including history, physical exam and plan: Yes Notes (Text): Acute CHF exacerbation, systolic dysfunction EF 20% Atrial Flutter - cont Lasix , Coreg - Discussed case with Dr Mitchell - rec to continue Lasix and Coreg ( hold only if BP less than 90systolic) - Pt has severe Cardiomyopathy Liver Cirrhosis with Ascites -cont Lasix, BB -Pt had recent Paracentesis, he may require rpt Paracentesis as outpt for comfort - ff up with GI for further mgt Renal Mass Bladder Mass Prostate Enalargement with Urinary Retention - seen by Urology - Dr Castro , plan for TUR and TURP and further eval once pt's cardiac status is stable - keep Brizuela catheter - cont Proscar, no Flomax due to Orthostatic Hypotension Physical Deconditioning -Physical Therapy - may benefit from PAOLA placement CKD Stage III
[2018-04-01 20:01] VITALS: BP 104/65; PULSE 104; TEMP 98.8
== END 2018-04-01 21:30 | DRG 291 ==
LOC: SUPCPDRO 09:15 → H.ER 09:15 → H.ERHOLD 09:21 → H.TEL 12:46
PROVIDERS: ADMIT Hospitalist; ATTEND Hospitalist
DX: I13.0 Hypertensive heart and chronic kidney disease with heart failure and stage 1 through stage 4 chronic kidney disease, or unspecified chronic kidney disease (principal); I50.23 Acute on chronic systolic (congestive) heart failure; I48.92 Unspecified atrial flutter; K70.31 Alcoholic cirrhosis of liver with ascites; I42.0 Dilated cardiomyopathy; H91.3 Deaf nonspeaking, not elsewhere classified; E78.00 Pure hypercholesterolemia, unspecified; E78.5 Hyperlipidemia, unspecified; N18.3 Chronic kidney disease, stage 3 (moderate); E11.22 Type 2 diabetes mellitus with diabetic chronic kidney disease; C67.9 Malignant neoplasm of bladder, unspecified; Z95.810 Presence of automatic (implantable) cardiac defibrillator; E87.5 Hyperkalemia; N40.1 Benign prostatic hyperplasia with lower urinary tract symptoms; R33.8 Other retention of urine; F10.10 Alcohol abuse, uncomplicated; I95.1 Orthostatic hypotension; N28.89 Other specified disorders of kidney and ureter